=== PATIENT | male | born 1930 | race Caucasian/White ===

== ENCOUNTER 2018-03-08 17:53 | Inpatient (IN) ==
--- NOTE | 2018-03-08 18:22 | Emergency Department Note ---
Disposition Clinical Impression: Shortness of breath, Lactic acidosis, Elevated troponin, New onset atrial flutter Congestive heart failure Qualifiers: Heart failure type: unspecified Heart failure chronicity: acute Qualified Code( s): I50.9 - Heart failure, unspecified Disposition: Admitted As Inpatient Condition: Fair Referrals: Boston Pearson MD [Primary Care Provider] - Forms: ED Satisfaction Letter Time of Disposition: 20:14 General Adult HPI - General Chief complaint: ED Shortness of Breath/Dyspnea Stated complaint: SOB / Bilateral LE Edema Time Seen by Provider: 03/08/18 17:59 Nursing Notes Reviewed: Yes Vital Signs Reviewed: Yes - History of Present Illness HPI Narrative: Mr. Lux is a very pleasant 87-year-old gentleman with a past history of hypertension, hyperlipidemia, type 2 diabetes, chronic kidney disease stage III and history of aortic valve replacement in 1998 presents to the [facility] emergency department with a chief complaint of shortness of breath. Patient was just seen last week with nephrology and had his Lasix increased to take 40 mg in the morning along with 20 at night. He reports that he becomes very short of breath during exertion and is able to ambulate using a walker. The SOB improves with rest. In addition, he is complaining of worsening lower extremities edema over the last week. Patient does have some chronic left edema with venous stasis dermatitis present due to history of varicose vein removal. No history of DVT, PE, recent travel. He only takes ASA for anticoagulation. Patient denies any PND but does have orthopnea. No recent hospitalizations. No history of CHF. He does report a history of recurrent falls recently. No tobacco or EtOH abuse. No other complaint at this time. Pain Scale: 5 - Related Data Allergies Allergy/AdvReac Type Severity Reaction Status Date / Time No Known Allergies Allergy Verified 12/27/17 18:15 Review of Systems: Constitutional: No fever Vision: No blurred vision ENT: No rhinorrhea Respiratory: No cough Cardiovascular: No chest pain Allergic: No allergies : No blood in urine GI: No blood in stool Hematologic: No bruising Dermatologic: No skin rash Musculoskeletal: No pain in the extremities Neuro: No numbness of the extremities Past Medical History - Past Medical History Medical history: Reports: non-contributory Psychiatric history: Reports: no psych history - Social History Smoking Status: Never smoker Smokeless Tobacco Status: No Alcohol use: Reports: none Physical Exam CONSTITUTIONAL: Alert and oriented X3 in no apparent distress HEAD: Normocephalic; atraumatic. Oropharynx: pink/moist RESP: NRD without use of accessory musculature, CTA b/l with no wheezes/rales/ rhonchi CARD: Regular rhythm, MIHIR ABD: grossly normal, soft, non-tender, no guarding/distention/rigidity SKIN: warm, dry EXT: PT pulses 1+ and symmetrical; Lateralizing edema R>L; stasis dermatitis present b/l, 1+ pitting edema bilateral PSYCH: appropriate mood/affect Course Course Narrative: Patient was seen and examined at bedside. Vital signs reviewed were unremarkable. Physical examination demonstrates lungs that were clear to auscultation bilaterally. No evidence of any rales, crackles or wheezing. Patient is in the presence of a systolic ejection murmur. Abdominal exam was benign. Lower extremity exam demonstrates stasis dermatitis bilaterally with 1 + pitting edema bilaterally. Posterior tibial pulses are 1+. There is some lateralizing edema with right greater than left. He denies any tenderness to his lower extremities. We will begin workup with total lead EKG, chest x-ray, troponin, CBC, BMP, coags. Patient does appear comfortable and nontoxic at this time. In the setting of shortness of breath and lateralizing edema we will order a DVT study to his right lower extremity to rule out possible DVT. Patient has no history of DVT or pulmonary embolization in the past. Echocardiogram was reviewed from 09/26/2017 showed EF of 66% with mild diastolic dysfunction. Disposition pending. 2000: DVT study shows no thrombus present. CBC unremarkable. BMP shows elevated creatinine of 1.5 at his baseline. Coags were unremarkable. Chest x- ray shows no acute process. Twelve-lead EKG demonstrates what appears to be new onset atrial flutter. Repeat EKG again demonstrates similar findings. Lactic acid at 4.2. This could be explained due to him taking metformin 500 mg 5 times a day in the setting of chronic kidney disease. I would recommend patient be admitted for observation due to his elevated troponin, lactic acid and new onset atrial flutter. This case was discussed with hospitalist, Dr. Rice, who will accept patient for admission. No further recommendations per hospital team. This disposition and plan was discussed the patient understands and agrees. All further questions or concerns were addressed. Vital Signs Temperature 97.8 F 03/08/18 17:55 Pulse Rate 70 03/08/18 17:55 Respiratory Rate 18 03/08/18 17:55 Blood Pressure 144/70 03/08/18 17:55 O2 Sat by Pulse Oximetry 95 03/08/18 17:55 Temperature 97.8 F 03/08/18 18:18 Pulse Rate 70 03/08/18 18:18 Respiratory Rate 18 03/08/18 18:18 Blood Pressure 144/70 03/08/18 18:18 O2 Sat by Pulse Oximetry 95 03/08/18 18:18 Oxygen Delivery Oxygen Delivery Room Air Medical Decision Making - Medical Records Medical records reviewed: Yes I reviewed the patient's medical records. - Lab Data Lab results reviewed: Yes I reviewed the patient's lab results. Result diagrams: 03/08/18 18:41 03/08/18 18:41 Lab Results 03/08/18 03/08/18 03/08/18 Range/Units 18:41 18:41 18:41 WBC 5.4 (4.3-11.1) K/mcL RBC 4.23 (4.19-5.50) M/mcL Hgb 12.7 L (12.9-16.9) g/dL Hct 39.4 (37.5-50.1) % MCV 93.1 (83.0-100.0) fL MCH 30.0 (28.0-33.3) pg MCHC 32.2 (31.6-35.5) g/dL RDW 20.0 H (11.5-14.5) % Plt Count 169 (140-400) K/mcL MPV 9.4 (9.4-12.4) fL Immature Gran % 0.4 (0-4) % Seg Neutrophils % 68.2 % Lymphocytes % 18.9 % Monocytes % 8.3 % Eosinophils % 3.5 % Basophils % 0.7 % Neutrophils # 3.7 (1.6-8.9) K/mcL Lymphocytes # 1.0 (0.6-4.6) K/mcL Monocytes # 0.5 (0.0-1.3) K/mcL Eosinophils # 0.2 (0.0-0.6) K/mcL Basophils # 0.0 (0.0-0.2) K/mcL PT 11.8 (9.4-12.1) Seconds INR 1.1 APTT 28.9 (26.0-36.0) Seconds Sodium 135 L (136-145) mEq/L Potassium 4.4 (3.5-5.1) mEq/L Chloride 94 L (98-107) mEq/L Carbon Dioxide 31 H (23-29) mEq/L BUN 26 H (8-23) mg/dL Creatinine 1.53 H (0.70-1.30) mg/dL Est GFR ( Amer) 53 L (> 60) Est GFR (Non-Af Amer) 43 L (> 60) BUN/Creatinine Ratio 17 (6-26) Glucose 275 H (70-105) mg/dL Calculated Osmolality 295 (280-300) Lactic Acid (0.5-2.2) mmol/L Calcium 8.5 L (8.6-10.3) mg/dL Troponin I 0.11 H* (< 0.04) ng/mL B-Natriuretic Peptide (Less than 100) pg/mL 03/08/18 03/08/18 Range/Units 18:41 18:41 WBC (4.3-11.1) K/mcL RBC (4.19-5.50) M/mcL Hgb (12.9-16.9) g/dL Hct (37.5-50.1) % MCV (83.0-100.0) fL MCH (28.0-33.3) pg MCHC (31.6-35.5) g/dL RDW (11.5-14.5) % Plt Count (140-400) K/mcL MPV (9.4-12.4) fL Immature Gran % (0-4) % Seg Neutrophils % % Lymphocytes % % Monocytes % % Eosinophils % % Basophils % % Neutrophils # (1.6-8.9) K/mcL Lymphocytes # (0.6-4.6) K/mcL Monocytes # (0.0-1.3) K/mcL Eosinophils # (0.0-0.6) K/mcL Basophils # (0.0-0.2) K/mcL PT (9.4-12.1) Seconds INR APTT (26.0-36.0) Seconds Sodium (136-145) mEq/L Potassium (3.5-5.1) mEq/L Chloride (98-107) mEq/L Carbon Dioxide (23-29) mEq/L BUN (8-23) mg/dL Creatinine (0.70-1.30) mg/dL Est GFR ( Amer) (> 60) Est GFR (Non-Af Amer) (> 60) BUN/Creatinine Ratio (6-26) Glucose (70-105) mg/dL Calculated Osmolality (280-300) Lactic Acid 4.2 H* (0.5-2.2) mmol/L Calcium (8.6-10.3) mg/dL Troponin I (< 0.04) ng/mL B-Natriuretic Peptide 617 H (Less than 100) pg/mL - Radiology Data Radiology results reviewed: Yes I reviewed the patient's radiology results. Chest X-Ray 03/08/18 18:14 IMPRESSION: Low lung volume study with bibasilar opacities that likely reflect atelectasis. Trace effusions are difficult to exclude. Probable hiatal hernia. Stable cardiomegaly. D/ / 03/08/2018 18:35:24 Nolan Leonard MD / griselda Interpreting Provider: Nolan Leonard MD - EKG Data EKG #1 EKG attestation: Yes I reviewed and interpreted this EKG. EKG results narrative: 1833 - heart rate 69, QRS 98, QTC 437 consistent with new onset atrial flutter. Left axis. There are no other specific ST or T-wave abnormalities. This EKG was compared to previous 03 performed on 12/13/2012. EKG #2 EKG attestation: Yes I reviewed and interpreted this EKG. EKG results narrative: 1950 - heart rate 68, QRS 101, QTC 434 consistent with atrial flutter. This EKG is unchanged from previous that was performed at 1833. Attestation Statement - Attestation Attestation: I, Td Roberts DO, examined this patient [id number] and my medical decision-making was reviewed with Moreno Razo PGY-1, Resident Physician. I agree with the documented findings, disposition and treatment plan as described except to the extent set forth below. Please see my progress notes for details.
--- NOTE | 2018-03-08 18:45 | Emergency Department Note ---
Disposition Clinical Impression: Congestive heart failure, Shortness of breath, Lactic acidosis, Elevated troponin Disposition: Admitted As Inpatient Condition: Fair Referrals: Boston Pearson MD [Primary Care Provider] - Forms: ED Satisfaction Letter Time of Disposition: 20:04 General Adult HPI - General Chief complaint: ED Shortness of Breath/Dyspnea Stated complaint: SOB / Bilateral LE Edema Time Seen by Provider: 03/08/18 17:59 - History of Present Illness Pain Scale: 5 - Related Data Allergies Allergy/AdvReac Type Severity Reaction Status Date / Time No Known Allergies Allergy Verified 12/27/17 18:15 Past Medical History - Past Medical History Medical history: Reports: non-contributory Psychiatric history: Reports: no psych history - Social History Smoking Status: Never smoker Smokeless Tobacco Status: No Alcohol use: Reports: none Course Vital Signs Temperature 97.8 F 03/08/18 17:55 Pulse Rate 70 03/08/18 17:55 Respiratory Rate 18 03/08/18 17:55 Blood Pressure 144/70 03/08/18 17:55 O2 Sat by Pulse Oximetry 95 03/08/18 17:55 Temperature 97.8 F 03/08/18 18:18 Pulse Rate 70 03/08/18 18:18 Respiratory Rate 18 03/08/18 18:18 Blood Pressure 144/70 03/08/18 18:18 O2 Sat by Pulse Oximetry 95 03/08/18 18:18 Oxygen Delivery Oxygen Delivery Room Air Medical Decision Making - Lab Data Result diagrams: 03/08/18 18:41 03/08/18 18:41 Lab Results 03/08/18 03/08/18 03/08/18 Range/Units 18:41 18:41 18:41 WBC 5.4 (4.3-11.1) K/mcL RBC 4.23 (4.19-5.50) M/mcL Hgb 12.7 L (12.9-16.9) g/dL Hct 39.4 (37.5-50.1) % MCV 93.1 (83.0-100.0) fL MCH 30.0 (28.0-33.3) pg MCHC 32.2 (31.6-35.5) g/dL RDW 20.0 H (11.5-14.5) % Plt Count 169 (140-400) K/mcL MPV 9.4 (9.4-12.4) fL Immature Gran % 0.4 (0-4) % Seg Neutrophils % 68.2 % Lymphocytes % 18.9 % Monocytes % 8.3 % Eosinophils % 3.5 % Basophils % 0.7 % Neutrophils # 3.7 (1.6-8.9) K/mcL Lymphocytes # 1.0 (0.6-4.6) K/mcL Monocytes # 0.5 (0.0-1.3) K/mcL Eosinophils # 0.2 (0.0-0.6) K/mcL Basophils # 0.0 (0.0-0.2) K/mcL PT 11.8 (9.4-12.1) Seconds INR 1.1 APTT 28.9 (26.0-36.0) Seconds Sodium 135 L (136-145) mEq/L Potassium 4.4 (3.5-5.1) mEq/L Chloride 94 L (98-107) mEq/L Carbon Dioxide 31 H (23-29) mEq/L BUN 26 H (8-23) mg/dL Creatinine 1.53 H (0.70-1.30) mg/dL Est GFR ( Amer) 53 L (> 60) Est GFR (Non-Af Amer) 43 L (> 60) BUN/Creatinine Ratio 17 (6-26) Glucose 275 H (70-105) mg/dL Calculated Osmolality 295 (280-300) Lactic Acid (0.5-2.2) mmol/L Calcium 8.5 L (8.6-10.3) mg/dL Troponin I 0.11 H* (< 0.04) ng/mL B-Natriuretic Peptide (Less than 100) pg/mL 03/08/18 03/08/18 Range/Units 18:41 18:41 WBC (4.3-11.1) K/mcL RBC (4.19-5.50) M/mcL Hgb (12.9-16.9) g/dL Hct (37.5-50.1) % MCV (83.0-100.0) fL MCH (28.0-33.3) pg MCHC (31.6-35.5) g/dL RDW (11.5-14.5) % Plt Count (140-400) K/mcL MPV (9.4-12.4) fL Immature Gran % (0-4) % Seg Neutrophils % % Lymphocytes % % Monocytes % % Eosinophils % % Basophils % % Neutrophils # (1.6-8.9) K/mcL Lymphocytes # (0.6-4.6) K/mcL Monocytes # (0.0-1.3) K/mcL Eosinophils # (0.0-0.6) K/mcL Basophils # (0.0-0.2) K/mcL PT (9.4-12.1) Seconds INR APTT (26.0-36.0) Seconds Sodium (136-145) mEq/L Potassium (3.5-5.1) mEq/L Chloride (98-107) mEq/L Carbon Dioxide (23-29) mEq/L BUN (8-23) mg/dL Creatinine (0.70-1.30) mg/dL Est GFR ( Amer) (> 60) Est GFR (Non-Af Amer) (> 60) BUN/Creatinine Ratio (6-26) Glucose (70-105) mg/dL Calculated Osmolality (280-300) Lactic Acid 4.2 H* (0.5-2.2) mmol/L Calcium (8.6-10.3) mg/dL Troponin I (< 0.04) ng/mL B-Natriuretic Peptide 617 H (Less than 100) pg/mL Attestation Statement - Attestation Attestation: I, Td Roberts DO, examined this patient [id number] and my medical decision-making was reviewed with Moreno Razo PGY-1, Resident Physician. I agree with the documented findings, disposition and treatment plan as described except to the extent set forth below. Please see my progress notes for details. 87-year-old male presents to the emergency room for evaluation of shortness of breath and bilateral lower extremity swelling. Patient also has had some increased work of breathing and orthopnea. Patient denies chest pain fevers chills nausea vomiting or diarrhea. Denies any headache or vision change. Patient does have increased work of breathing and bilateral lower extremity swelling goes up above the knee bilaterally. His appropriate palpable DP and PT pulses. His lungs are clear to auscultation heart is regular abdomen is soft. Patient is resting comfortably in the bed at this time. He is concerned about fluid overload causing him exertional issues at home to the point where he feels unsteady. Patient denies any other symptoms at this time. Physical exam is unremarkable. She will have detailed workup including CBC chemistry EKG troponin and BNP and chest x-ray completed at this time. Medications intervention will be discussed once the workup and treatment course are established. See detailed documentation of the physical exam, medical intervention, medical decision-making and disposition in the resident physician' s note. 1900 Patient found to have an elevated lactic acid of 4.1. There is no infectious source the patient is been hemodynamically stable. He is on a significantly elevated dosage of metformin. Could be discharged to the asymptomatic lactic acidosis at this time. Patient's troponin is elevated this could be demand ischemia secondary to his increased work of breathing orthopnea. Patient's EKG is unremarkable and we repeated at this time and does shows stable atrial flutter. This is not a previous diagnosis of some review of his chart. Is difficult to differentiate the source to the symptoms of this time but with the new findings of possible atrial flutter elevated troponin and a synovial elevated lactic acid patient will be admitted for further management and evaluation. Patient was informed of this family was informed of the comfortable this plan. Patient is otherwise in no distress. Patient was discussed with the hospitalist. No other recommendations from them this time. Patient is otherwise currently stable at the time of admission to the hospital for further management.
[2018-03-08 18:59] LABS: Basophils % 0.7 %; Eosinophils # 0.2 K/mcL (0.0-0.6); Eosinophils % 3.5 %; Hematocrit 39.4 % (37.5-50.1); Hemoglobin 12.7 g/dL (12.9-16.9); Immature Granulocytes % 0.4 % (0-4); Lymphocytes % 18.9 %; Mean Corpuscular HGB Conc 32.2 g/dL (31.6-35.5); Mean Corpuscular Volume 93.1 fL (83.0-100.0); Mean Platelet Volume 9.4 fL (9.4-12.4); Monocytes # 0.5 K/mcL (0.0-1.3); Monocytes % 8.3 %; Neutrophils # 3.7 K/mcL (1.6-8.9); Platelet Count 169 K/mcL (140-400); Red Blood Count 4.23 M/mcL (4.19-5.50); Segmented Neutrophils % 68.2 %
[2018-03-08 19:05] LABS: INR 1.1; Prothrombin Time 11.8 Seconds (9.4-12.1)
[2018-03-08 19:08] LABS: Activated Partial Thrombo Time 28.9 Seconds (26.0-36.0)
[2018-03-08 19:17] LABS: Calcium 8.5 mg/dL (8.6-10.3); Potassium 4.4 mEq/L (3.5-5.1)
[2018-03-08 19:24] LABS: Troponin I 0.11 ng/mL (< 0.04)
[2018-03-08] MEDS ORDERED: Aspirin 325 MG TABLET PO ONE (19:25)
[2018-03-08 20:33] LABS: Bilirubin,Urine Negative (Negative); Blood,Urine Negative (Negative); Clarity,Urine Clear (Clear); Color,Urine Yellow (Yellow); Glucose,Urine (UA) 250 mg/dL (Normal); Ketones,Urine Negative (Negative); Leukocyte Esterase,Urine Negative (Negative); Nitrite,Urine Negative (Negative); Protein,Urine Negative (Neg-Trace); Specific Gravity,Urine 1.015 (1.010-1.025); Urobilinogen,Urine Normal (Normal)
[2018-03-08] MEDS ORDERED: Naloxone 0.4 MG/ML INJ IVP PRN (22:16)
[2018-03-08] MEDS ORDERED: Acetaminophen 325 MG TABLET PO PRN (22:16)
[2018-03-08] MEDS ORDERED: D5% in Water 1,000 ML IVC PRN (22:21)
[2018-03-08] MEDS ORDERED: Dextrose Gel 15 GM/37.5 ML TUBE PO PRN ×2 (22:21)
[2018-03-08] MEDS ORDERED: *HR* Dextrose 50 % in Water (Syg) 50 ML SYRINGE IVP PRN (22:21)
--- NOTE | 2018-03-08 22:25 | Internal Med History&Physical ---
Date of Encounter: 03/08/18 Time of Encounter: 21:40 Internal Medicine - H&P: HPI Chief complaint: Shortness of breath Admitted From: Emergency Dept Plans for Post Hospital Care: Home History of present illness: Mr. 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 patient lives alone and is ADL-independent. He does have some exertional dyspnea at baseline, going on for the last few months, which has been worse in the last 2-3 days, associated with worsening leg welling. He does have chronic swelling and skin changes at baseline. He also reports intermittent dry cough. No chest pain, palpitations, nausea, vomiting, fever/chills. Past Med Surg Social Fam HX - Past Medical History Source: patient Medical history: diabetes, hyperlipidemia, hypertension, renal disease, thyroid disease Psychiatric history: no psych history - Past Surgical History Surgical History: breast surgery, hip replacement (left), knee replacement ( right), other (AV replacement, varicose vein stripping, hemorrhoidectomy) - Social History Smoking Status: Never smoker Smokeless Tobacco Status: No Alcohol use: none Drug use: none Occupational status: retired Current living situation: Home - Independent Activity Level: Independent ambulation Recent Out of Country Travel Within the Last 8 Weeks: No Exposure or Possible Exposure to Illness During Travel: No - Family History Mother Living Status: Cause of : CVA Hx Family Cardiac Disorders: Yes (CVA, CHF, venous stasis) Hx Family Neurologic Disorders: Yes (Alzheimers) Father Living Status: Age at : 94 Cause of : [place] Hx Family Cardiac Disorders: Yes ([place]) Hx Family Endocrine Disorder: Yes (DM) Internal Medicine - H&P: Meds Alendronate Sodium [Fosamax] 70 mg PO QWEEK 03/08/18 [History] Aspirin [Lo-Dose Aspirin EC] 81 mg PO DAILY 03/08/18 [History] Atorvastatin Calcium [Lipitor] 20 mg PO DAILY 03/08/18 [History] Carbidopa/Levodopa 25/100 [Sinemet 25/100] 1 tab PO 5XD 03/08/18 [History] Cyanocobalamin (Vitamin B-12) [Vitamin B12] 1,000 mcg PO DAILY 03/08/18 [History ] Ergocalciferol (VITAMIN D2) [Vitamin D2] 50,000 unit PO QWEEK 03/08/18 [History] Furosemide [Lasix] 40 mg PO 1500 03/08/18 [History] Furosemide [Lasix] 80 mg PO QAM 03/08/18 [History] Insulin Aspart Prot/Insuln Asp [Novolog Mix 70-30 Vial] 10 - 12 unit SQ BID 01/21 [History] Iron Polysaccharide Complex [Ferrex 150] 150 mg PO DAILY 03/08/18 [History] Lactobacillus Acidophilus [Acidophilus] 1 each PO DAILY 03/08/18 [History] Levothyroxine Sodium [Levoxyl] 88 mcg PO QAM 03/08/18 [History] Metformin HCl [Glucophage] 1,000 mg PO QAM 03/08/18 [History] Metformin HCl [Glucophage] 1,500 mg PO QPM 03/08/18 [History] Metoprolol [Lopressor] 100 mg PO BID 03/08/18 [History] Primidone [Mysoline] 250 mg PO BID 03/08/18 [History] Vitamin E (Dl,Tocopheryl Acet) [Vitamin E] 1,000 unit PO BID 03/08/18 [History] amLODIPine [Norvasc] 5 mg PO DAILY 03/08/18 [History] hydroCHLOROthiazide [Hydrochlorothiazide] 25 mg PO DAILY 03/08/18 [History] 3 Allergy/AdvReac Type Severity Reaction Status Date / Time No Known Allergies Allergy Verified 12/27/17 18:15 All Systems PM: A 10-system review of systems was performed and is negative for pertinent findings except as documented above in the HPI. - Constitutional Constitutional: no chills, no fever(s), no night sweats - EENT Eyes: no change in vision, no discharge, no pain, no photophobia Ears: no ear discharge, no ear pain, no tinnitus Nose, mouth and throat: no dysphagia, no nasal discharge, no neck pain, no sore throat - Cardiovascular Cardiovascular ROS IM: dyspnea on exertion, edema - Respiratory Respiratory: cough, dyspnea on exertion, no dyspnea, no wheezing, no excessive phlegm production - Gastrointestinal Gastrointestinal: no abdominal pain, no diarrhea, no hematemesis, no hematochezia, no melena, no nausea, no vomiting - Musculoskeletal Musculoskeletal ROS IM: no numbness, no tingling - Integumentary Integumentary IM: no rash, no unusual bruising - Neurological Neurological ROS: no confusion, no convulsions, no focal weakness, no numbness, no tingling, no tremor(s) - Hematologic/Lymphatic Hematologic/Lymphatic: no easy bruising - Constitutional Vitals: Temp Pulse Resp BP Pulse Ox 97.8 F 70 18 125/76 95 03/08/18 18:18 03/08/18 18:18 03/08/18 21:47 03/08/18 21:47 03/08/18 18:18 General appearance: Present: A&O X 3, answers questions appropriately - Respiratory Respiratory exam: Present: CTAB, rales (bibasal). Absent: accessory muscle use , rhonchi, wheezes - Cardiovascular Cardiovascular exam: Present: RRR, +S1, +S2 (prosthetic), systolic murmur ( systolic). Absent: diastolic murmur, gallop, rubs - GI/Abdominal GI/Abdominal exam: Present: normal bowel sounds, soft, no peritoneal signs. Absent: distended, tenderness - Extremities Exam Extremities exam: Present: full ROM, pedal edema (2+ pedal edema, chronic stasis dermatitis), warm, radial pulses palpable and symmetrical. Absent: calf tenderness, cyanotic - Neurological Exam Neurological exam: Present: CN II-XII intact, oriented X3, no focal deficits. Absent: pronater drift, facial droop, speech deficit - Skin Skin exam: Present: dry, intact Internal Med - H&P Results - Labs CBC & Chem 7: 03/08/18 18:41 03/08/18 18:41 - EKG Data -: EKG Interpreted by Myself EKG shows normal: sinus rhythm (atrial flutter in 2 leads only?) Rate: normal - Assessment and plan (1) Congestive heart failure Current Visit: Yes Status: Acute Assessment and plan: Echo from 09/2017 showed preserved EF, mild LV diastolic dysfunction, moderate prosthetic , MR, PHTN; continue IV diuresis, fluid restriction, urine output monitoring; continue beta eve; Telemetry monitoring and serial Troponins; check TTE; Qualifiers: Heart failure type: diastolic Heart failure chronicity: acute on chronic Qualified Code(s): I50.33 - Acute on chronic diastolic (congestive) heart failure (2) New onset atrial flutter Current Visit: Yes Status: Suspected Assessment and plan: EKG is not clear; atrial flutter noted only in 2 leads? rate controlled; continue Telemetry and repeat EKG in am; (3) Lactic acidosis Current Visit: Yes Status: Acute Assessment and plan: improving; in the setting of high dose of Metformin use and CKD; continue to monitor; (4) Elevated troponin Current Visit: Yes Status: Acute Assessment and plan: likely due to acute CHF; continue Telemetry and trend Troponins; (5) Essential hypertension Current Visit: Yes Status: Chronic (6) Diabetes mellitus Current Visit: Yes Status: Chronic Assessment and plan: blood sugars on BMP elevated; start Accucheck blood glucose monitoring with basal bolus insulin regimen; diabetic diet; Qualifiers: Diabetes mellitus type: type 2 Diabetes mellitus fpc insulin use: with fpc use Diabetes mellitus complication status: with kidney complications Diabetes mellitus complication detail: with chronic kidney disease Chronic kidney disease stage: stage 3 (moderate) Qualified Code(s): E11.22 - Type 2 diabetes mellitus with diabetic chronic kidney disease; N18.3 - Chronic kidney disease, stage 3 (moderate); N18.3 - Chronic kidney disease, stage 3 (moderate); Z79.4 - halfway (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 of insulin; 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; Z79.4 - halfway (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 of insulin; 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
[2018-03-08] MEDS: *HR* Heparin 5,000 UNIT/ML VIAL SQ SCH (22:55)
[2018-03-08] MEDS: Carbidopa/Levodopa 25/100 TABLET PO SCH (22:55)
[2018-03-08] MEDS: 0.9 % Sodium Chloride 1,000 ML IVC SCH ×2 (23:14→23:15)
[2018-03-09] MEDS: *HR* Heparin 5,000 UNIT/ML VIAL SQ SCH ×3 (05:55→20:38)
[2018-03-09 06:04] LABS: Basophils % 0.5 %; Eosinophils # 0.1 K/mcL (0.0-0.6); Eosinophils % 2.8 %; Hematocrit 41.6 % (37.5-50.1); Hemoglobin 13.2 g/dL (12.9-16.9); Immature Granulocytes % 0.5 % (0-4); Lymphocytes # 0.8 K/mcL (0.6-4.6); Lymphocytes % 17.6 %; Mean Corpuscular HGB Conc 31.7 g/dL (31.6-35.5); Mean Corpuscular Hemoglobin 29.6 pg (28.0-33.3); Mean Corpuscular Volume 93.3 fL (83.0-100.0); Mean Platelet Volume 9.2 fL (9.4-12.4); Monocytes # 0.4 K/mcL (0.0-1.3); Monocytes % 8.5 %; Platelet Count 144 K/mcL (140-400); Red Blood Count 4.46 M/mcL (4.19-5.50); Segmented Neutrophils % 70.1 %
[2018-03-09 06:27] LABS: Calcium 8.7 mg/dL (8.6-10.3); Potassium 4.2 mEq/L (3.5-5.1)
[2018-03-09] MEDS: Insulin LISPRO 300 UNITS/3 ML VIAL SQ SCH ×4 (07:50→21:31)
[2018-03-09] MEDS: Metoprolol 100 MG TABLET PO SCH ×2 (07:52→20:38)
[2018-03-09] MEDS: Aspirin Enteric Coated 81 MG Tablet PO SCH (07:52)
[2018-03-09] MEDS: Lactobacillus 1 EACH CAP.SPRINK PO SCH (07:52)
[2018-03-09] MEDS: Furosemide 40 MG/4 ML VIAL IVP SCH ×2 (07:52→17:19)
[2018-03-09] MEDS: Carbidopa/Levodopa 25/100 TABLET PO SCH ×5 (07:55→22:57)
--- NOTE | 2018-03-09 10:00 | Electrocardiograph Report ---
[place] [id number] Test Date: 2018-03-08 Pat Name: Aj Lux Department: 104 Room: 3B Gender: M Director Imaging: ASIA : 1930 Requested By: Lance Razo Order Number: [id number] Reading MD: Neno Ray Measurements Intervals [place] Rate: 69 P: [place]: 0 QRS: -22 QRSD: 98 T: 240 QT: 418 QTc: 437 Interpretive Statements PROBABLY SINUS RHYTHM BASELINE ARTIFACT COMPLICATES ACCURATE INTERPRETATION Electronically Signed On 03-09-2018 9:58:47 EDT by Neno Ray
--- NOTE | 2018-03-09 17:57 | Internal Med Progress Note ---
Date of Encounter: 03/09/18 Time of Encounter: 17:55 - Assessment and plan (1) Congestive heart failure Current Visit: Yes Status: Acute Assessment and plan: Presents today with shortness of breath and bilateral lower extremity swelling. Continues to require O2 for respiratory support. Patient reports she takes a "water pill" at home that his dose was recently increased. He reports that his doses had to be increased due to increased swelling and weight gain over the last couple of weeks. Additionally, the patient reports that while at physical therapy a week or 2 ago he became very hypoxic and his heart rate dropped very low and that his physical therapy team said they would no longer let him complete therapy until he was cleared by his PCP or software design analyst. TTE today completed and revealed an LVEF of 50-55%, bioprosthetic aortic valve replacement with normal function, no pulmonary hypertension, mild left ventricular diastolic dysfunction, severely dilated left atrium. Patient denies any improvement since admission but also denies any worsening of symptoms. He was noted to have an elevated troponin which peaked at 0.12. This is likely due to demand ischemia. Troponins were continued to be trended and are now coming down most recent troponin I 0.09. Continue IV diuresis Continue fluid restriction Monitor I's and O's Continuous telemetry Consult to cardiology, new bradycardia and hypoxia Qualifiers: Heart failure type: diastolic Heart failure chronicity: acute on chronic Qualified Code(s): I50.33 - Acute on chronic diastolic (congestive) heart failure (2) Lactic acidosis Current Visit: Yes Status: Resolved Assessment and plan: Result Likely caused by metformin use (3) Elevated troponin Current Visit: Yes Status: Acute Assessment and plan: likely due to acute CHF, see assessment and plan above (4) New onset atrial flutter Current Visit: Yes Status: Suspected Assessment and plan: EKG does not appear to be atrial flutter per my review (5) Essential hypertension Current Visit: Yes Status: Chronic Assessment and plan: Stable, continue antihypertensives (6) Diabetes mellitus Current Visit: Yes Status: Chronic Assessment and plan: Throughout the day blood glucose has continued to be elevated at times Increasing patient's dose to medium sliding scale coverage Qualifiers: Diabetes mellitus type: type 2 Diabetes mellitus fpc insulin use: with fpc use Diabetes mellitus complication status: with kidney complications Diabetes mellitus complication detail: with chronic kidney disease Chronic kidney disease stage: stage 3 (moderate) Qualified Code(s): E11.22 - Type 2 diabetes mellitus with diabetic chronic kidney disease; N18.3 - Chronic kidney disease, stage 3 (moderate); N18.3 - Chronic kidney disease, stage 3 (moderate); Z79.4 - long term acute care registered nurse (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 of insulin; Z79.4 - penitentiary (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 of insulin; Z79.4 - long term acute care registered nurse (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 of insulin; Z79.4 - long term acute care registered nurse (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 of insulin (7) CKD (chronic kidney disease), stage III Current Visit: Yes Status: Chronic Assessment and plan: Serum creatinine at baseline, continue to avoid nephrotoxins Continue to monitor serum creatinine closely (8) Aortic valve replaced Current Visit: Yes Status: Chronic (9) Hypothyroidism Current Visit: Yes Status: Chronic Assessment and plan: Continue Synthroid Qualifiers: Hypothyroidism type: unspecified Qualified Code(s): E03.9 - Hypothyroidism , unspecified - Time Spent With Patient Total time spent is greater than 50% in coordination of care (as documented) at patient's floor/unit and/or counseling patient: Greater than 35 minutes - Subjective Interval history: Mr. Lux an 87-year-old male patient with a history of aortic stenosis and bioprosthetic valve, CKD, and diabetes. He presents due to worsening shortness of breath. Patient reports some baseline dyspnea however reports this is worsening over the last couple of months. In getting increasingly worse over the last 2-3 days. He is also noted to have some bilateral lower extremity swelling. Denied any chest pain, diaphoresis, nausea. Patient seen and examined at bedside today continues to deny chest pain however is reporting shortness of breath at rest which also worsens with exertion. - Constitutional Vitals: Temp Pulse Resp BP Pulse Ox 97.6 F 68 15 105/63 97 03/09/18 14:58 03/09/18 14:58 03/09/18 14:58 03/09/18 14:58 03/09/18 14:58 General appearance: Present: A&O X 3, answers questions appropriately - Head Head exam: Present: atraumatic, normocephalic - Eye Eye exam: Present: PERRL, conjuntiva pink, sclera anicteric Pupils: Present: PERRL - Neck Neck exam general surgery: Present: supple, trachea midline. Absent: lymphadenopathy - Respiratory Respiratory exam: Present: CTAB, rales (Bibasilar). Absent: accessory muscle use, rhonchi, wheezes - Cardiovascular Cardiovascular exam: Present: RRR, +S1, +S2, systolic murmur (Holosystolic). Absent: diastolic murmur, gallop, rubs - GI/Abdominal GI/Abdominal exam: Present: normal bowel sounds, soft, no peritoneal signs. Absent: distended, tenderness - Extremities Exam Extremities exam: Present: normal capillary refill, pedal edema, warm, radial pulses palpable and symmetrical. Absent: calf tenderness, cyanotic, joint swelling, normal inspection - Neurological Exam Neurological exam: Present: CN II-XII intact, oriented X3, no focal deficits. Absent: pronater drift, facial droop, speech deficit - Skin Skin exam: Present: dry, intact Internal Medicine: Result - Labs CBC & Chem 7: 03/09/18 05:48 03/09/18 05:48 Labs: Short CBC 03/09/18 Range/Units 05:48 WBC 4.3 (4.3-11.1) K/mcL Hgb 13.2 (12.9-16.9) g/dL Hct 41.6 (37.5-50.1) % Plt Count 144 (140-400) K/mcL Neutrophils # 3.0 (1.6-8.9) K/mcL BMP 03/09/18 05:48 Sodium 139 Potassium 4.2 Chloride 97 L Carbon Dioxide 33 H BUN 23 Creatinine 1.42 H Glucose 90 Calcium 8.7 Cardiac Enzymes 03/08/18 03/09/18 03/09/18 Range/Units 22:33 05:48 11:26 Troponin I 0.12 H* 0.13 H* 0.09 H* (< 0.04) ng/mL - ABG Interpretation ABG results: PT/INR, D-dimer PT 11.8 Seconds (9.4-12.1) 03/08/18 18:41 - Impressions Impressions Echocardiogram 03/09/18 10:00 Impressions: LVEF 50-55%. Bioprosthetic aortic valve replacement with normal function. No pulmonary hypertension. Mild left ventricular diastolic dysfunction. Severely dilated left atrium. Left Ventricular Wall Motion: Rest Echo Findings All wall segments showed normal motion. Findings: Study Quality * Technically adequate exam. Right Ventricle * Normal right ventricular structure and function. Interatrial Septum * No evidence of PFO by color Doppler. Aorta * Normally sized aortic root. Pericardium * The pericardium appears normal. Aortic Valve * No aortic regurgitation. * No aortic stenosis. * Aortic valve not well visualized. * Mean gradient 20mmHg likely normal for bioprosthetic aortic valve * Bioprosthetic aortic valve replacement with normal function. Mitral Valve * Normal mitral valve structure. * No mitral stenosis. * Mild mitral regurgitation. Tricuspid Valve * No tricuspid stenosis. * Mild tricuspid regurgitation. * Estimated RVSP is 30 mmHg. * No pulmonary hypertension. Pulmonic Valve * No pulmonic stenosis. * Mild pulmonic regurgitation. Left Ventricle * LVEF 50-55%. * Mild left ventricular diastolic dysfunction. IVC * Normal IVC dimensions and inspiratory collapse. Left Atrium * Severely dilated left atrium. Right Atrium * Moderately dilated right atrium. Consult Discharge Plan - Plan Referrals: Boston Pearson MD [Primary Care Provider] -
[2018-03-09] MEDS ORDERED: Insulin LISPRO 300 UNITS/3 ML VIAL SQ SCH (21:00)
[2018-03-10] MEDS: *HR* Heparin 5,000 UNIT/ML VIAL SQ SCH ×3 (05:22→20:39)
--- NOTE | 2018-03-10 06:24 | Electrocardiograph Report ---
[address] [address] Test Date: 2018-03-08 Pat Name: Aj Lux Department: [id number] Room: 3B Gender: M Cafeteria Clerk: JOHN : 1930 Requested By: Lance Razo Order Number: [id number] Reading MD: Neno Ray Measurements Intervals [place] Rate: 68 P: ID: 0 QRS: -24 QRSD: 101 T: 5 QT: 417 QTc: 434 Interpretive Statements ATRIAL FLUTTER/TACHYCARDIA BORDERLINE LEFT AXIS DEVIATION BASELINE ARTIFACT COMPLICATES ACCURATE INTERPRETATION Electronically Signed On 03-10-2018 6:22:40 EDT by Neno Ray
[2018-03-10] MEDS: Insulin LISPRO 300 UNITS/3 ML VIAL SQ SCH ×4 (08:53→20:38)
[2018-03-10] MEDS: Aspirin Enteric Coated 81 MG Tablet PO SCH (08:54)
[2018-03-10] MEDS: Lactobacillus 1 EACH CAP.SPRINK PO SCH (08:54)
[2018-03-10] MEDS: Metoprolol 100 MG TABLET PO SCH ×2 (08:54→20:37)
[2018-03-10] MEDS: Furosemide 40 MG/4 ML VIAL IVP SCH ×2 (08:54→18:20)
[2018-03-10] MEDS: Carbidopa/Levodopa 25/100 TABLET PO SCH ×4 (08:58→20:37)
--- NOTE | 2018-03-10 13:18 | Cardiology Consult Note ---
<Haja Lobo - Last Filed: 03/10/18 14:42> Date of Encounter: 03/10/18 Time of Encounter: 13:20 Assessment and Plan (1) Congestive heart failure Current Visit: Yes Status: Acute Per Cardiology: Chest x-ray stable. BNP 617. On IV Lasix 4omg BID. Net negative I&O - 2660ml. clinically appears improved. Lasix 40 mg by mouth every 8 hours at home most recently. Current echo shows EF 50-55%, normal functioning bioprosthetic aortic valve, no pulmonary hypertension, mild diastolic dysfunction, severely dilated left atrium, NSWMA. Qualifiers: Heart failure type: diastolic Heart failure chronicity: acute on chronic Qualified Code(s): I50.33 - Acute on chronic diastolic (congestive) heart failure (2) New onset atrial flutter Current Visit: Yes Status: Acute Per Cardiology: Suspected new onset. Rate controlled. Longest pause 3.1 seconds. On Lopressor 100 mg by mouth twice a day at home. Average heart rate the past 24 hours 56. Continue his current medical regimen area if develops any significant bradycardia can consider down titration of beta eve. Echo shows severely dilated left atrium. Regarding long-term anticoagulation, ideally patient would be on anticoagulation other than aspirin that he is taking currently, however does have history of anemia with blood transfusion as well as frequent falls with essential tremor and secondary parkinsonian. Patient and family aware of increased stroke risk. (3) Elevated troponin Current Visit: Yes Status: Acute Per Cardiology: Troponins elevated with peak of 0.13, flat and adynamic. Chest pain-free. Suspect demand ischemia and setting of CHF, KAITY on CKD, atrial flutter. Can consider further ischemic evaluation, however would not recommend catheterization at this point until kidney function improves. Patient and family contemplating follow-up with Dr. Estrada in a few days and outpatient setting. (4) Aortic valve replaced Current Visit: Yes Status: Chronic Per Cardiology: History of bioprosthetic aortic valve replacement in 1998 at [facility]. Current echo shows normal functioning by [place] aortic valve. (5) CKD (chronic kidney disease), stage III Current Visit: Yes Status: Chronic Per Cardiology: Continue to monitor. Avoid nephrotoxics. Discussion w patient/family: The assessment and plan as outlined above was discussed with the patient and/or family members who expressed understanding and agreement. All questions were answered. Thank you for involving us in the care of your patient. Please call with any questions. History of Present Illness Consult date: 03/10/18 Requesting physician: Akash Shankar Consult reason: Bradycardia, CHF Chief complaint: Edema, SOB History of present illness: Mr. Lux is a 87 year old male with relevant past medical history of bioprosthetic aortic valve replacement in 1998 mL [place], DM 2, hypertension, essential tremor/secondary Parkinsonism, hyperlipidemia. Last seen by Dr. Estrada in December 2017. Has pending appointment with him next week. Cardiology consult for worsening edema and short of breath. Also, concerns of low heart rates. Patient seen with daughters at bedside. Patient reportedly in therapy for balance disorder was noted to feel more short of breath with hypoxia and bradycardia. Apparently therapy was canceled and patient sent home. Family brought to ER for worsening concerns of shortness of breath at rest, weight gain , and increased edema to lower extremities. Patient reports no chest pain symptoms. He does report 6-7 pound weight gain over the past few weeks. Had diuretic dose increased by Dr. Estrada recently and by nephrology. Had been taking Lasix 40 mg by mouth 3 times a day most recently. He reports clinical improvement today regarding swelling and shortness of breath. Daughters verify. He denies any active bleeding or blood loss. Denies any known history of atrial fibrillation or atrial flutter. Reports frequent falls and has fallen 7-8 times in the past 1-2 months. Past Med Surg Social Fam HX - Past Medical History Attestation: Yes The following information was validated with the patient. Source: patient, old records reviewed, obtained from family Medical history: diabetes, hyperlipidemia, hypertension, renal disease, thyroid disease Psychiatric history: no psych history - Past Surgical History Surgical History: breast surgery, hip replacement (left), knee replacement ( right), other (AV replacement, varicose vein stripping, hemorrhoidectomy) - Social History Smoking Status: Never smoker Smokeless Tobacco Status: No Alcohol use: none Drug use: none - Family History Mother Living Status: Cause of : CVA Hx Family Cardiac Disorders: Yes (CVA, CHF, venous stasis) Hx Family Neurologic Disorders: Yes (Alzheimers) Father Living Status: Age at : 94 Cause of : CT Hx Family Cardiac Disorders: Yes (CT) Hx Family Endocrine Disorder: Yes (DM) Medications and Allergies Alendronate Sodium [Fosamax] 70 mg PO QWEEK 03/08/18 [History] Aspirin [Lo-Dose Aspirin EC] 81 mg PO DAILY 03/08/18 [History] Atorvastatin Calcium [Lipitor] 20 mg PO DAILY 03/08/18 [History] Carbidopa/Levodopa 25/100 [Sinemet 25/100] 1 tab PO 5XD 03/08/18 [History] Cyanocobalamin (Vitamin B-12) [Vitamin B12] 1,000 mcg PO DAILY 03/08/18 [History ] Ergocalciferol (VITAMIN D2) [Vitamin D2] 50,000 unit PO QWEEK 03/08/18 [History] Furosemide [Lasix] 40 mg PO 1500 03/08/18 [History] Furosemide [Lasix] 80 mg PO QAM 03/08/18 [History] Insulin Aspart Prot/Insuln Asp [Novolog Mix 70-30 Vial] 10 - 12 unit SQ BID 01/21 [History] Iron Polysaccharide Complex [Ferrex 150] 150 mg PO DAILY 03/08/18 [History] Lactobacillus Acidophilus [Acidophilus] 1 each PO DAILY 03/08/18 [History] Levothyroxine Sodium [Levoxyl] 88 mcg PO QAM 03/08/18 [History] Metformin HCl [Glucophage] 1,000 mg PO QAM 03/08/18 [History] Metformin HCl [Glucophage] 1,500 mg PO QPM 03/08/18 [History] Metoprolol [Lopressor] 100 mg PO BID 03/08/18 [History] Primidone [Mysoline] 250 mg PO BID 03/08/18 [History] Vitamin E (Dl,Tocopheryl Acet) [Vitamin E] 1,000 unit PO BID 03/08/18 [History] amLODIPine [Norvasc] 5 mg PO DAILY 03/08/18 [History] hydroCHLOROthiazide [Hydrochlorothiazide] 25 mg PO DAILY 03/08/18 [History] 3 Allergy/AdvReac Type Severity Reaction Status Date / Time No Known Allergies Allergy Verified 12/27/17 18:15 All Systems Review: The remainder of the systems were reviewed and are negative - Constitutional Constitutional: weight gain - Cardiovascular Cardiovascular: as per HPI, dyspnea at rest, leg edema Physical Examination Vital Signs, Last 4 Hours Temp Pulse Resp BP Pulse Ox 05/05/18 12:09 98 F 70 16 98/62 97 General: Conversant, No Apparent Distress HEENT: Atraumatic, Normocephaly, Mucus Membranes Moist Neck: No JVD, Normal carotid pulses Cardiac: Normal S1 and S2, No Murmur, Other (Irregularly irregular) Lungs: Normal Breath Sounds, No Wheeze, Rales, Rhonchi, Other (Slightly diminished bilateral bases) Neuro: Alert and responsive, No focal deficits noted Abdomen: Soft, Non-Tender Skin: No rashes noted on visualized skin Musculoskeletal: No Chest Wall Tenderness Extremities: No Clubbing, No Cyanosis, Normal Pulses, Other (+1-2 nonpitting edema to bilateral lower extremity) Results 03/09/18 05:48 03/09/18 05:48 Laboratory Tests 03/08/18 03/08/18 03/08/18 18:41 18:41 18:41 INR 1.1 Creatinine Est GFR (Non-Af Amer) Troponin I 0.11 H* B-Natriuretic Peptide 617 H 03/08/18 03/09/18 03/09/18 22:33 05:48 05:48 INR Creatinine 1.42 H Est GFR (Non-Af Amer) 47 L Troponin I 0.12 H* 0.13 H* B-Natriuretic Peptide 03/09/18 11:26 INR Creatinine Est GFR (Non-Af Amer) Troponin I 0.09 H* B-Natriuretic Peptide ITS Impressions Chest X-Ray 03/08/18 18:14 IMPRESSION: Low lung volume study with bibasilar opacities that likely reflect atelectasis. Trace effusions are difficult to exclude. Probable hiatal hernia. Stable cardiomegaly. D/ / 03/08/2018 18:35:24 Nolan Leonard MD / griselda Interpreting Provider: Nolan Leonard MD Echocardiogram 03/09/18 10:00 Impressions: LVEF 50-55%. Bioprosthetic aortic valve replacement with normal function. No pulmonary hypertension. Mild left ventricular diastolic dysfunction. Severely dilated left atrium. Left Ventricular Wall Motion: Rest Echo Findings All wall segments showed normal motion. Findings: Study Quality * Technically adequate exam. Right Ventricle * Normal right ventricular structure and function. Interatrial Septum * No evidence of PFO by color Doppler. Aorta * Normally sized aortic root. Pericardium * The pericardium appears normal. Aortic Valve * No aortic regurgitation. * No aortic stenosis. * Aortic valve not well visualized. * Mean gradient 20mmHg likely normal for bioprosthetic aortic valve * Bioprosthetic aortic valve replacement with normal function. Mitral Valve * Normal mitral valve structure. * No mitral stenosis. * Mild mitral regurgitation. Tricuspid Valve * No tricuspid stenosis. * Mild tricuspid regurgitation. * Estimated RVSP is 30 mmHg. * No pulmonary hypertension. Pulmonic Valve * No pulmonic stenosis. * Mild pulmonic regurgitation. Left Ventricle * LVEF 50-55%. * Mild left ventricular diastolic dysfunction. IVC * Normal IVC dimensions and inspiratory collapse. Left Atrium * Severely dilated left atrium. Right Atrium * Moderately dilated right atrium. Active Medications Acetaminophen (Tylenol) 650 mg PO Q6HR PRN PRN Reason: Mild Pain/Fever Stop: 09/07/18 22:17 Aspirin (Aspirin Ec) 81 mg PO DAILY [place] Stop: 09/08/18 09:01 Last Admin: 03/10/18 08:54 Dose: 81 mg Atorvastatin Calcium (Lipitor) 20 mg PO DAILY [place] Stop: 09/08/18 09:01 Last Admin: 03/10/18 08:54 Dose: 20 mg Carbidopa/Levodopa (Sinemet) 1 each PO 5XD [place] Stop: 09/08/18 00:01 Last Admin: 03/10/18 08:58 Dose: 1 each Dextrose/Water (Dextrose 50% (Syg)) 25 ml IVP AD PRN PRN Reason: Hypoglycemia Stop: 09/07/18 22:22 Furosemide (Lasix) 40 mg IVP BIDDIURETIC [place] Stop: 09/08/18 08:01 Last Admin: 03/10/18 08:54 Dose: 40 mg Glucagon (Glucagen) 1 mg IM ONCE PRN PRN Reason: Hypoglycemia Stop: 09/07/18 22:22 Glucose (Gluctose) 15 gm PO ONCE PRN PRN Reason: Hypoglycemia Stop: 09/07/18 22:22 Glucose (Gluctose) 30 gm PO ONCE PRN PRN Reason: Hypoglycemia Stop: 09/07/18 22:22 Heparin Sodium (Porcine) (Heparin) 5,000 unit SQ Q8HCO [place] Stop: 09/07/18 22:46 Last Admin: 03/10/18 05:22 Dose: 5,000 unit Dextrose (Dextrose 5%) 1,000 mls @ 100 mls/hr IVC .Q10H PRN PRN Reason: HYPOGLYCEMIA Stop: 09/07/18 22:22 Insulin Human Lispro (Humalog) 0 units SQ HS [place] PRN Reason: Protocol Stop: 09/08/18 21:01 Last Admin: 03/09/18 21:31 Dose: 5 units Insulin Human Lispro (Humalog) 0 units SQ TIDAC [place] PRN Reason: Protocol Stop: 09/09/18 07:31 Last Admin: 03/10/18 08:53 Dose: Not Given Lactobacillus Acidophilus/Rhamnosus (Culturelle) 1 each PO DAILY [place] Stop: 09/08/18 09:01 Last Admin: 03/10/18 08:54 Dose: 1 each Levothyroxine Sodium (Synthroid) 88 mcg PO 0630 [place] Stop: 09/08/18 06:31 Last Admin: 03/10/18 05:22 Dose: 88 mcg Metoprolol Tartrate (Lopressor) 100 mg PO BID [place] Stop: 09/08/18 09:01 Last Admin: 03/10/18 08:54 Dose: 100 mg Naloxone HCl (Narcan) 0.4 mg IVP Q2MIN PRN PRN Reason: SEE COMMENTS Stop: 09/07/18 22:17 Primidone (Mysoline) 250 mg PO BID [facility] Stop: 09/08/18 09:01 Last Admin: 03/10/18 08:54 Dose: 250 mg - EKG Interpretation EKG results cardiology: personally reviewed (Atrial flutter in the 60s), other ( Telemetry reviewed with average heart rate as 12 hours 56, slowest heart rate 48 during nocturnal hours. He remains in atrial flutter in the 50s.) Consult Discharge Plan - Plan Referrals: Boston Pearson MD [Primary Care Provider] - <Bia Ojeda - Last Filed: 03/10/18 15:50> Date of Encounter: 03/10/18 - Attending Attestation I examined this patient and my medical decision-making was reviewed with the [employer]. I agree with the documented findings, disposition and treatment plan as described. Mr. Lux presents with newly discovered atrial flutter and acute diastolic dysfunction. Agree with another 24h of IV diuresis. Heart rates are controlled on BB. Full anticoagulation was discussed with patient and family and decided against with their knowledge of CVA risk since patient has frequent falls. Echo this admission demonstrates normal LVEF, normal functioning bioprosthetic AVR. No acute ischemic ECG findings. Troponins flat and adynamic do not represent ACS. Will re-evaluate tomorrow. Assessment and Plan Discussion w patient/family: The assessment and plan as outlined above was discussed with the patient and/or family members who expressed understanding and agreement. All questions were answered. Thank you for involving us in the care of your patient. Please call with any questions. History of Present Illness History of present illness: Mr. Lux is a 87 year old male All Systems Review: The remainder of the systems were reviewed and are negative Physical Examination Vital Signs, Last 4 Hours Temp Pulse Resp BP Pulse Ox 03/10/18 15:36 98.5 F 69 16 118/72 93 03/10/18 12:09 98 F 70 16 98/62 97 Results 03/09/18 05:48 03/09/18 05:48
--- NOTE | 2018-03-10 17:19 | Internal Med Progress Note ---
Date of Encounter: 03/10/18 Time of Encounter: 17:17 - Assessment and plan (1) Congestive heart failure Current Visit: Yes Status: Acute Assessment and plan: Presented with congestive heart failure, shortness of breath bilateral lower extremity swelling. Reports that his shortness of breath is improving, he does not appear labored, lungs clear without rales to auscultation today. Bilateral lower extremities appear to be improving, nonpitting edema. TTE reveals LVEF of 50-55%, bioprosthetic aortic valve replacement with normal function, no pulmonary hypertension, mild left ventricular diastolic dysfunction , severely dilated left atrium. Cardiology has signed off Continue IV diuresis Continue fluid restriction Monitor I's and O's Continuous telemetry Consult to cardiology, new bradycardia and hypoxia Respiratory support per nasal cannula titrate when necessary to maintain SPO2 greater than 92% Qualifiers: Heart failure type: diastolic Heart failure chronicity: acute on chronic Qualified Code(s): I50.33 - Acute on chronic diastolic (congestive) heart failure (2) Lactic acidosis Current Visit: Yes Status: Resolved Assessment and plan: Result Likely caused by metformin use (3) Elevated troponin Current Visit: Yes Status: Acute Assessment and plan: Likely due to demand ischemia with congestive heart failure (4) New onset atrial flutter Current Visit: Yes Status: Acute Assessment and plan: Rate controlled On Lopressor, continue; noted to be sinus bradycardia on telemetry, average heart rate 56 Cardiology has seen and notes that of significant bradycardia develops consider down titration of beta eve Unable to anticoagulate due to frequent falls and history of anemia requiring blood transfusion (5) Essential hypertension Current Visit: Yes Status: Chronic Assessment and plan: Has remained stable throughout the stay continue antihypertensives (6) Diabetes mellitus Current Visit: Yes Status: Chronic Assessment and plan: Throughout the day blood glucose has continued to be elevated at times Increasing patient's dose to medium sliding scale coverage Add basal insulin daily at bedtime Qualifiers: Diabetes mellitus type: type 2 Diabetes mellitus mcfp insulin use: with mcfp use Diabetes mellitus complication status: with kidney complications Diabetes mellitus complication detail: with chronic kidney disease Chronic kidney disease stage: stage 3 (moderate) Qualified Code(s): E11.22 - Type 2 diabetes mellitus with diabetic chronic kidney disease; N18.3 - Chronic kidney disease, stage 3 (moderate); N18.3 - Chronic kidney disease, stage 3 (moderate); Z79.4 - terminal operator (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 of insulin; Z79.4 - prison (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 of insulin; Z79.4 - prison (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 of insulin; Z79.4 - terminal operator (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 of insulin (7) CKD (chronic kidney disease), stage III Current Visit: Yes Status: Chronic Assessment and plan: Serum creatinine at baseline, continue to avoid nephrotoxins monitor serum creatinine closely (8) Aortic valve replaced Current Visit: Yes Status: Chronic (9) Hypothyroidism Current Visit: Yes Status: Chronic Assessment and plan: Continue Synthroid Qualifiers: Hypothyroidism type: unspecified Qualified Code(s): E03.9 - Hypothyroidism , unspecified - Time Spent With Patient Total time spent is greater than 50% in coordination of care (as documented) at patient's floor/unit and/or counseling patient: 25 - 35 minutes - Subjective Interval history: Mr. Lux an 87-year-old male patient with a history of aortic stenosis and bioprosthetic valve, CKD, and diabetes. He presents due to worsening shortness of breath. Patient reports some baseline dyspnea however reports this is worsening over the last couple of months. In getting increasingly worse over the last 2-3 days. He is also noted to have some bilateral lower extremity swelling. Denied any chest pain, diaphoresis, nausea. Patient seen and examined at bedside today continues to deny chest pain reports that his shortness of breath is improving, also notes that his acuity swelling is improving. - Constitutional Vitals: Temp Pulse Resp BP Pulse Ox 98.5 F 69 16 118/72 93 03/10/18 15:36 03/10/18 15:36 03/10/18 15:36 03/10/18 15:36 03/10/18 15:36 General appearance: Present: A&O X 3, answers questions appropriately - Head Head exam: Present: atraumatic, normocephalic - Eye Eye exam: Present: PERRL, conjuntiva pink, sclera anicteric Pupils: Present: PERRL - Neck Neck exam general surgery: Present: supple, trachea midline. Absent: lymphadenopathy - Respiratory Respiratory exam: Present: CTAB. Absent: accessory muscle use, rales, rhonchi, wheezes - Cardiovascular Cardiovascular exam: Present: RRR, +S1, +S2. Absent: diastolic murmur, gallop, rubs, systolic murmur - GI/Abdominal GI/Abdominal exam: Present: normal bowel sounds, soft, no peritoneal signs. Absent: distended, tenderness - Extremities Exam Extremities exam: Present: normal capillary refill, pedal edema (Improving), warm, radial pulses palpable and symmetrical. Absent: calf tenderness, cyanotic - Neurological Exam Neurological exam: Present: CN II-XII intact, oriented X3, no focal deficits. Absent: pronater drift, facial droop, speech deficit - Skin Skin exam: Present: dry, intact Internal Medicine: Result - Labs CBC & Chem 7: 03/09/18 05:48 03/09/18 05:48 - ABG Interpretation ABG results: PT/INR, D-dimer PT 11.8 Seconds (9.4-12.1) 03/08/18 18:41 Consult Discharge Plan - Plan Referrals: Boston Pearson MD [Primary Care Provider] -
[2018-03-10] MEDS: Insulin DETEMIR 100 UNIT/ML X5UNITS SQ SCH (20:38)
[2018-03-10] MEDS: VITAMIN E PO SCH (20:39)
[2018-03-11] MEDS: Carbidopa/Levodopa 25/100 TABLET PO SCH ×5 (00:15→20:03)
[2018-03-11 05:18] LABS: Basophils % 0.4 %; Eosinophils # 0.2 K/mcL (0.0-0.6); Eosinophils % 3.5 %; Hematocrit 42.4 % (37.5-50.1); Hemoglobin 13.7 g/dL (12.9-16.9); Immature Granulocytes % 0.2 % (0-4); Lymphocytes % 21.5 %; Mean Corpuscular HGB Conc 32.3 g/dL (31.6-35.5); Mean Corpuscular Hemoglobin 30.5 pg (28.0-33.3); Mean Corpuscular Volume 94.4 fL (83.0-100.0); Mean Platelet Volume 9.8 fL (9.4-12.4); Monocytes # 0.5 K/mcL (0.0-1.3); Monocytes % 10.9 %; Platelet Count 167 K/mcL (140-400); Red Blood Count 4.49 M/mcL (4.19-5.50); Red Cell Distribution Width 19.7 % (11.5-14.5); Segmented Neutrophils % 63.5 %
[2018-03-11 05:34] LABS: Calcium 9.1 mg/dL (8.6-10.3); Potassium 4.7 mEq/L (3.5-5.1)
[2018-03-11] MEDS: *HR* Heparin 5,000 UNIT/ML VIAL SQ SCH ×3 (05:52→22:05)
--- NOTE | 2018-03-11 07:20 | Cardiology Progress Note ---
Date of Encounter: 03/11/18 Time of Encounter: 07:20 Assessment and Plan (1) Congestive heart failure Current Visit: Yes Status: Acute Per Cardiology: Chest x-ray stable. BNP 617. On IV Lasix 4omg BID. Net negative I&O - 2910ml. clinically appears improved. Lasix 40 mg by mouth every 8 hours at home most recently-- consider Dc on 80mg PO BID Current echo shows EF 50-55%, normal functioning bioprosthetic aortic valve, no pulmonary hypertension, mild diastolic dysfunction, severely dilated left atrium, NSWMA. Will add strict I&O , 1.5 L fluid restriction. Qualifiers: Heart failure type: diastolic Heart failure chronicity: acute on chronic Qualified Code(s): I50.33 - Acute on chronic diastolic (congestive) heart failure (2) New onset atrial flutter Current Visit: Yes Status: Acute Per Cardiology: Suspected new onset. Rate controlled-- avg HR past 12 hrs 68, currently aflutter 60's Longest pause 2.7 seconds. On Lopressor 100 mg by mouth twice a day at home. Continue his current medical regimen area if develops any significant bradycardia can consider down titration of beta eve. Echo shows severely dilated left atrium. Regarding long-term anticoagulation, ideally patient would be on anticoagulation other than aspirin that he is taking currently, however does have history of anemia with blood transfusion as well as frequent falls with essential tremor and secondary parkinsonian. Patient and family aware of increased stroke risk. (3) Elevated troponin Current Visit: Yes Status: Acute Per Cardiology: Troponins elevated with peak of 0.13, flat and adynamic. Chest pain-free. Suspect demand ischemia and setting of CHF, KAITY on CKD, atrial flutter. F/u as scheduled this week with primary Diaphragm Builder. No further ischemic eval at this juncture. Patient agrees with plan. Will s/o, f/u as planned, re-consult PRN. Discussed with Dr. Ojeda. (4) Aortic valve replaced Current Visit: Yes Status: Chronic Per Cardiology: History of bioprosthetic aortic valve replacement in 1998 at [facility]. Current echo shows normal functioning by bioprosthetic aortic valve. (5) CKD (chronic kidney disease), stage III Current Visit: Yes Status: Chronic Per Cardiology: Continue to monitor. Avoid nephrotoxics. Discussion w patient/family: The assessment and plan as outlined above was discussed with the patient and/or family members who expressed understanding and agreement. All questions were answered. Thank you for involving us in the care of your patient. Please call with any questions. Subjective Principal diagnosis: Aflutter Interval history: Reports SOB and edema drastically improved. Objective Vital Signs, Last 4 Hours Temp Pulse Resp BP Pulse Ox 03/11/18 06:58 97.5 F L 69 14 133/76 94 General: Conversant, No Apparent Distress HEENT: Atraumatic, Normocephaly, Mucus Membranes Moist Neck: No JVD, Normal carotid pulses Cardiac: Normal S1 and S2, No Murmur, Other (irregularly irregular) Lungs: Normal Breath Sounds, No Wheeze, Rales, Rhonchi Neuro: Alert and responsive, No focal deficits noted Abdomen: Soft, Non-Tender Skin: No rashes noted on visualized skin Musculoskeletal: No Chest Wall Tenderness Extremities: No Clubbing, No Cyanosis, Normal Pulses, Other (+1 nonpitting edema ) Results 03/11/18 04:07 03/11/18 04:07 Lab Results Laboratory Tests 03/11/18 04:07 Creatinine 1.62 H Est GFR (Non-Af Amer) 41 L Impressions Chest X-Ray 03/08/18 18:14 IMPRESSION: Low lung volume study with bibasilar opacities that likely reflect atelectasis. Trace effusions are difficult to exclude. Probable hiatal hernia. Stable cardiomegaly. D/ / 03/08/2018 18:35:24 Nolan Leonard MD / griselda Interpreting Provider: Nolan Leonard MD Intake & Output 03/08/18 03/09/18 03/10/18 03/11/18 23:59 23:59 23:59 23:59 Intake Total 460 / 460 480 / 480 Output Total 300 / 300 2250 / 2250 1300 / 1300 Balance -300 / -300 -1790 / -1790 -820 / -820 Weight 103.5 kg 102 kg Active Medications Acetaminophen (Tylenol) 650 mg PO Q6HR PRN PRN Reason: Mild Pain/Fever Stop: 09/07/18 22:17 Aspirin (Aspirin Ec) 81 mg PO DAILY [facility] Stop: 09/08/18 09:01 Last Admin: 03/10/18 08:54 Dose: 81 mg Atorvastatin Calcium (Lipitor) 20 mg PO DAILY [facility] Stop: 09/08/18 09:01 Last Admin: 03/10/18 08:54 Dose: 20 mg Carbidopa/Levodopa (Sinemet) 1 each PO 5XD [facility] Stop: 09/08/18 00:01 Last Admin: 03/11/18 00:15 Dose: 1 each Dextrose/Water (Dextrose 50% (Syg)) 25 ml IVP AD PRN PRN Reason: Hypoglycemia Stop: 09/07/18 22:22 Furosemide (Lasix) 40 mg IVP BIDDIURETIC [facility] Stop: 09/08/18 08:01 Last Admin: 03/10/18 18:20 Dose: 40 mg Glucagon (Glucagen) 1 mg IM ONCE PRN PRN Reason: Hypoglycemia Stop: 09/07/18 22:22 Glucose (Gluctose) 15 gm PO ONCE PRN PRN Reason: Hypoglycemia Stop: 09/07/18 22:22 Glucose (Gluctose) 30 gm PO ONCE PRN PRN Reason: Hypoglycemia Stop: 09/07/18 22:22 Heparin Sodium (Porcine) (Heparin) 5,000 unit SQ Q8HCO [facility] Stop: 09/07/18 22:46 Last Admin: 03/11/18 05:52 Dose: 5,000 unit Dextrose (Dextrose 5%) 1,000 mls @ 100 mls/hr IVC .Q10H PRN PRN Reason: HYPOGLYCEMIA Stop: 09/07/18 22:22 Insulin Detemir (Levemir) 16 unit 0.15 unit/kg (16 unit) SQ HS [facility] Stop: 09/09/18 21:01 Last Admin: 03/10/18 20:38 Dose: 16 unit Insulin Human Lispro (Humalog) 0 units SQ HS [facility] PRN Reason: Protocol Stop: 09/08/18 21:01 Last Admin: 03/10/18 20:38 Dose: 4 units Insulin Human Lispro (Humalog) 0 units SQ TIDAC [facility] PRN Reason: Protocol Stop: 09/09/18 07:31 Last Admin: 03/10/18 18:22 Dose: 10 units Lactobacillus Acidophilus/Rhamnosus (Culturelle) 1 each PO DAILY [facility] Stop: 09/08/18 09:01 Last Admin: 03/10/18 08:54 Dose: 1 each Levothyroxine Sodium (Synthroid) 88 mcg PO 0630 [facility] Stop: 09/08/18 06:31 Last Admin: 03/11/18 05:52 Dose: 88 mcg Metoprolol Tartrate (Lopressor) 100 mg PO BID [facility] Stop: 09/08/18 09:01 Last Admin: 03/10/18 20:37 Dose: 100 mg Naloxone HCl (Narcan) 0.4 mg IVP Q2MIN PRN PRN Reason: SEE COMMENTS Stop: 09/07/18 22:17 Pharmacy Profile Note (Patient Taking Own Medication) 1 each PO BID [facility] Stop: 09/09/18 21:01 Last Admin: 03/10/18 20:39 Dose: 1 each Primidone (Mysoline) 250 mg PO BID [facility] Stop: 09/08/18 09:01 Last Admin: 03/10/18 20:37 Dose: 250 mg - Imaging and Cardiology Echo: report reviewed - EKG Interpretation EKG results cardiology: other (Tele shows aflutter, avg HR 66 past 12 hrs, currently aflutter 60's, longest pause 2.7 secs.) Consult Discharge Plan - Plan Referrals: Boston Pearson MD [Primary Care Provider] -
[2018-03-11] MEDS: Insulin LISPRO 300 UNITS/3 ML VIAL SQ SCH ×4 (08:06→22:06)
[2018-03-11] MEDS: Aspirin Enteric Coated 81 MG Tablet PO SCH (08:09)
[2018-03-11] MEDS: VITAMIN E PO SCH ×2 (08:09→22:06)
[2018-03-11] MEDS: Lactobacillus 1 EACH CAP.SPRINK PO SCH (08:09)
[2018-03-11] MEDS: Metoprolol 100 MG TABLET PO SCH ×2 (08:09→22:06)
[2018-03-11] MEDS: Furosemide 40 MG/4 ML VIAL IVP SCH ×2 (08:10→18:16)
--- NOTE | 2018-03-11 13:26 | Internal Med Progress Note ---
Date of Encounter: 03/11/18 Time of Encounter: 11:30 - Assessment and plan (1) Congestive heart failure Current Visit: Yes Status: Acute Assessment and plan: Presented with congestive heart failure, shortness of breath bilateral lower extremity swelling. Reports that his shortness of breath is improving, he does not appear labored, lungs clear without rales to auscultation today. Bilateral lower extremities appear to be improving, nonpitting edema. TTE reveals LVEF of 50-55%, bioprosthetic aortic valve replacement with normal function, no pulmonary hypertension, mild left ventricular diastolic dysfunction , severely dilated left atrium. Cardiology has signed off Continue IV diuresis Continue fluid restriction Monitor I's and O's Continuous telemetry Consult to cardiology, new bradycardia and hypoxia Respiratory support per nasal cannula titrate when necessary to maintain SPO2 greater than 92% Qualifiers: Heart failure type: diastolic Heart failure chronicity: acute on chronic Qualified Code(s): I50.33 - Acute on chronic diastolic (congestive) heart failure (2) Lactic acidosis Current Visit: Yes Status: Resolved Assessment and plan: Result Likely caused by metformin use (3) Elevated troponin Current Visit: Yes Status: Acute Assessment and plan: Likely due to demand ischemia with congestive heart failure (4) New onset atrial flutter Current Visit: Yes Status: Acute Assessment and plan: Rate controlled On Lopressor, continue; noted to be sinus bradycardia on telemetry, average heart rate 56 Cardiology has seen and notes that of significant bradycardia develops consider down titration of beta eev Unable to anticoagulate due to frequent falls and history of anemia requiring blood transfusion (5) Essential hypertension Current Visit: Yes Status: Chronic Assessment and plan: Has remained stable throughout the stay continue antihypertensives (6) Diabetes mellitus Current Visit: Yes Status: Chronic Assessment and plan: Throughout the day blood glucose has continued to be elevated at times Increasing patient's dose to medium sliding scale coverage Add basal insulin daily at bedtime Qualifiers: Diabetes mellitus type: type 2 Diabetes mellitus alf insulin use: with alf use Diabetes mellitus complication status: with kidney complications Diabetes mellitus complication detail: with chronic kidney disease Chronic kidney disease stage: stage 3 (moderate) Qualified Code(s): E11.22 - Type 2 diabetes mellitus with diabetic chronic kidney disease; N18.3 - Chronic kidney disease, stage 3 (moderate); N18.3 - Chronic kidney disease, stage 3 (moderate); Z79.4 - termite treater (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 of insulin; Z79.4 - USP (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 of insulin; Z79.4 - USP (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 of insulin; Z79.4 - termite treater (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 of insulin (7) CKD (chronic kidney disease), stage III Current Visit: Yes Status: Chronic Assessment and plan: Serum creatinine at baseline, continue to avoid nephrotoxins monitor serum creatinine closely (8) Aortic valve replaced Current Visit: Yes Status: Chronic (9) Hypothyroidism Current Visit: Yes Status: Chronic Assessment and plan: Continue Synthroid Qualifiers: Hypothyroidism type: unspecified Qualified Code(s): E03.9 - Hypothyroidism , unspecified - Time Spent With Patient Total time spent is greater than 50% in coordination of care (as documented) at patient's floor/unit and/or counseling patient: 25 - 35 minutes - Subjective Interval history: Mr. Lux an 87-year-old male patient with a history of aortic stenosis and bioprosthetic valve, CKD, and diabetes. He presents due to worsening shortness of breath. Patient reports some baseline dyspnea however reports this is worsening over the last couple of months. In getting increasingly worse over the last 2-3 days. He is also noted to have some bilateral lower extremity swelling. Denied any chest pain, diaphoresis, nausea. Patient seen and examined at bedside today continues to deny chest pain. Shortness of breath has improved at rest but is still mildly short of breath with activity. and patient is progressing towards baseline. Continues to have some mild bilateral lower extremity swelling but is now nonpitting. Patient no longer requiring oxygen and is now on room air today without respiratory distress. Due to continued exertional shortness breath the patient would benefit from additional diuresis and required an additional day stay. - Constitutional Vitals: Temp Pulse Resp BP Pulse Ox 98.4 F 69 14 100/61 94 03/11/18 11:47 03/11/18 11:47 03/11/18 11:47 03/11/18 11:47 03/11/18 11:47 General appearance: Present: A&O X 3, answers questions appropriately - Head Head exam: Present: atraumatic, normocephalic - Eye Eye exam: Present: PERRL, conjuntiva pink, sclera anicteric Pupils: Present: PERRL - Neck Neck exam general surgery: Present: supple, trachea midline. Absent: lymphadenopathy - Respiratory Respiratory exam: Present: CTAB. Absent: accessory muscle use, rales, rhonchi, wheezes - Cardiovascular Cardiovascular exam: Present: RRR, +S1, +S2. Absent: diastolic murmur, gallop, rubs, systolic murmur - GI/Abdominal GI/Abdominal exam: Present: normal bowel sounds, soft, no peritoneal signs. Absent: distended, tenderness - Extremities Exam Extremities exam: Present: pedal edema (Improving; generalized nonpitting), warm , radial pulses palpable and symmetrical. Absent: calf tenderness, cyanotic - Expanded Lower Extremities Exam Lower Leg exam: Present: swelling (Improving, generalized nonpitting) - Neurological Exam Neurological exam: Present: CN II-XII intact, oriented X3, no focal deficits. Absent: pronater drift, facial droop, speech deficit - Skin Skin exam: Present: dry, intact Internal Medicine: Result - Labs CBC & Chem 7: 03/11/18 04:07 03/11/18 04:07 Labs: Short CBC 03/11/18 Range/Units 04:07 WBC 4.8 (4.3-11.1) K/mcL Hgb 13.7 (12.9-16.9) g/dL Hct 42.4 (37.5-50.1) % Plt Count 167 (140-400) K/mcL Neutrophils # 3.0 (1.6-8.9) K/mcL BMP 03/11/18 04:07 Sodium 141 Potassium 4.7 Chloride 98 Carbon Dioxide 37 H BUN 28 H Creatinine 1.62 H Glucose 63 L Calcium 9.1 - ABG Interpretation ABG results: PT/INR, D-dimer PT 11.8 Seconds (9.4-12.1) 03/08/18 18:41 Consult Discharge Plan - Plan Referrals: Boston Pearson MD [Primary Care Provider] -
[2018-03-11] MEDS: Insulin DETEMIR 100 UNIT/ML X5UNITS SQ SCH (22:07)
[2018-03-12] MEDS: Carbidopa/Levodopa 25/100 TABLET PO SCH ×5 (00:33→20:50)
[2018-03-12] MEDS: *HR* Heparin 5,000 UNIT/ML VIAL SQ SCH ×3 (06:04→20:50)
[2018-03-12] MEDS: Insulin LISPRO 300 UNITS/3 ML VIAL SQ SCH ×3 (08:08→17:23)
[2018-03-12] MEDS: Furosemide 40 MG/4 ML VIAL IVP SCH ×2 (08:14→17:23)
[2018-03-12] MEDS: Metoprolol 100 MG TABLET PO SCH ×2 (08:15→20:50)
[2018-03-12] MEDS: Lactobacillus 1 EACH CAP.SPRINK PO SCH (08:15)
[2018-03-12] MEDS: Aspirin Enteric Coated 81 MG Tablet PO SCH (08:15)
[2018-03-12 08:16] LABS: BUN/Creatinine Ratio 24 (6-26); Blood Urea Nitrogen 29 mg/dL (8-23); Calcium 9.3 mg/dL (8.6-10.3); Carbon Dioxide 33 mEq/L (23-29); Chloride 99 mEq/L (98-107); Glucose 65 mg/dL (70-105); Osmolality,Calculated 296 (280-300); Potassium 4.4 mEq/L (3.5-5.1); Sodium 141 mEq/L (136-145); eGFR For African Americans > 60 (> 60); eGFR For Non-African Americans 56 (> 60)
[2018-03-12] MEDS: VITAMIN E PO SCH ×2 (08:16→20:51)
[2018-03-12 08:35] LABS: Basophils % 0.3 %; Eosinophils # 0.1 K/mcL (0.0-0.6); Hematocrit 44.4 % (37.5-50.1); Immature Granulocytes % 0.3 % (0-4); Lymphocytes # 1.1 K/mcL (0.6-4.6); Lymphocytes % 17.8 %; Mean Corpuscular HGB Conc 31.5 g/dL (31.6-35.5); Mean Corpuscular Hemoglobin 29.5 pg (28.0-33.3); Mean Corpuscular Volume 93.7 fL (83.0-100.0); Mean Platelet Volume 9.5 fL (9.4-12.4); Monocytes # 0.5 K/mcL (0.0-1.3); Monocytes % 8.8 %; Neutrophils # 4.3 K/mcL (1.6-8.9); Platelet Count 171 K/mcL (140-400); Red Blood Count 4.74 M/mcL (4.19-5.50); Red Cell Distribution Width 19.5 % (11.5-14.5); Segmented Neutrophils % 70.8 %
--- NOTE | 2018-03-12 13:52 | Discharge Summary ---
- NOTES TO OUTPATIENT PROVIDER Notes to Outpatient Provider: Admitted with CHF and fluid overload. Required IV diuresis. Ordered to take an extra dose of lasix for 3 days following discharge and f/u with PCP for further evaluation. Instructed to return should swelling worsen/persist or dyspnea return. Orders not resulted at time of discharge: Pending orders 03/13/18 04:00 BMP [Basic Metabolic Panel] AM 0400 Complete Blood Count [HEME] AM 0400 Date of Encounter: 03/12/18 Time of Encounter: 13:48 - Discharge Diagnosis (1) Congestive heart failure Priority: Primary Status: Acute Qualifiers: Heart failure type: diastolic Heart failure chronicity: acute on chronic Qualified Code(s): I50.33 - Acute on chronic diastolic (congestive) heart failure (2) Lactic acidosis Priority: Secondary Status: Resolved (3) Elevated troponin Priority: Secondary Status: Acute (4) New onset atrial flutter Priority: Secondary Status: Acute (5) Essential hypertension Priority: Secondary Status: Chronic (6) Diabetes mellitus Priority: Secondary Status: Chronic Qualifiers: Diabetes mellitus type: type 2 Diabetes mellitus care home insulin use: with care home use Diabetes mellitus complication status: with kidney complications Diabetes mellitus complication detail: with chronic kidney disease Chronic kidney disease stage: stage 3 (moderate) Qualified Code(s): E11.22 - Type 2 diabetes mellitus with diabetic chronic kidney disease; N18.3 - Chronic kidney disease, stage 3 (moderate); N18.3 - Chronic kidney disease, stage 3 (moderate); Z79.4 - nursing home (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 of insulin; Z79.4 - plate inspector (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 of insulin; Z79.4 - nursing home (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 of insulin; Z79.4 - nursing home (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 of insulin (7) CKD (chronic kidney disease), stage III Priority: Secondary Status: Chronic (8) Aortic valve replaced Priority: Secondary Status: Chronic (9) Hypothyroidism Priority: Secondary Status: Chronic Qualifiers: Hypothyroidism type: unspecified Qualified Code(s): E03.9 - Hypothyroidism , unspecified Hospital course: Mr. Lux is a 87 year old male Discharge discussed with: patient, nurse - Time Spent with Patient Total time spent providing and/or coordinating discharge services: Greater than 30 minutes - Discharge Medications Home Medications: Alendronate Sodium [Fosamax] 70 mg PO QWEEK 05/03/18 [History] Aspirin [Lo-Dose Aspirin EC] 81 mg PO DAILY 03/08/18 [History] Atorvastatin Calcium [Lipitor] 20 mg PO DAILY 03/08/18 [History] Carbidopa/Levodopa 25/100 [Sinemet 25/100] 1 tab PO 5XD 03/08/18 [History] Cyanocobalamin (Vitamin B-12) [Vitamin B12] 1,000 mcg PO DAILY 03/08/18 [History ] Ergocalciferol (VITAMIN D2) [Vitamin D2] 50,000 unit PO QWEEK 03/08/18 [History] Furosemide [Lasix] 40 mg PO 1500 03/08/18 [History] Furosemide [Lasix] 80 mg PO QAM 03/08/18 [History] Insulin Aspart Prot/Insuln Asp [Novolog Mix 70-30 Vial] 10 - 12 unit SQ BID 01/21 [History] Iron Polysaccharide Complex [Ferrex 150] 150 mg PO DAILY 03/08/18 [History] Lactobacillus Acidophilus [Acidophilus] 1 each PO DAILY 03/08/18 [History] Levothyroxine Sodium [Levoxyl] 88 mcg PO QAM 03/08/18 [History] Metformin HCl [Glucophage] 1,000 mg PO QAM 03/08/18 [History] Metformin HCl [Glucophage] 1,500 mg PO QPM 03/08/18 [History] Metoprolol [Lopressor] 100 mg PO BID 03/08/18 [History] Primidone [Mysoline] 250 mg PO BID 03/08/18 [History] Vitamin E (Dl,Tocopheryl Acet) [Vitamin E] 1,000 unit PO BID 03/08/18 [History] amLODIPine [Norvasc] 5 mg PO DAILY 03/08/18 [History] hydroCHLOROthiazide [Hydrochlorothiazide] 25 mg PO DAILY 03/08/18 [History] Allergies/Adverse Reactions: 3 Allergy/AdvReac Type Severity Reaction Status Date / Time No Known Allergies Allergy Verified 12/27/17 18:15 Date of admission: 03/08/18 22:16 Primary care physician: Boston Pearson MD Consults: 03/09/18 09:01 Consult to Nurse Navigator [CONS] Routine Comment: 03/09/18 15:14 Consult to Occupational Therapy [CONS] Routine Comment: Evaluate, develop and implement POC Reason for Consult: D/C PLANNING. DOES PATIENT NEED HOME HEALTH FOR THERAPY OR TO CONTINUE WITH OUTPATIENT THERAPY Does patient have active BEDREST order?: No Is patient medically & hemodynamically stable?: Yes Consult to Physical Therapy [CONS] Routine Comment: Evaluate, develop and implement POC Reason for Consult: D/C PLANNING. DOES PATIENT NEED HOME HEALTH OR TO CONTINUE WITH POUTPATIENT THERAPY Does patient have active BEDREST order?: No Is patient medically & hemodynamically stable?: Yes 03/09/18 18:39 Consult to Cardiology [CONS] Routine Comment: Consulting Provider: Cardiology Meryl Reason for Consult: Patient experienced symptomatic bradycardia and severe hypoxia with activity Time Notified: 18:40 Call Completed: Yes Discharging clinician: Akash Shankar Anticipated date of discharge: 03/12/18 - Constitutional Vitals: Temp Pulse Resp BP Pulse Ox 97.9 F 70 16 100/60 94 03/12/18 11:01 03/12/18 11:01 03/12/18 11:01 03/12/18 11:01 03/12/18 11:01 General appearance: Present: A&O X 3, answers questions appropriately - Head Head exam: Present: atraumatic, normocephalic - Eye Eye exam: Present: PERRL, conjuntiva pink, sclera anicteric Pupils: Present: PERRL - Neck Neck exam general surgery: Present: supple, trachea midline. Absent: lymphadenopathy - Respiratory Respiratory exam: Present: CTAB. Absent: accessory muscle use, rales, rhonchi, wheezes - Cardiovascular Cardiovascular exam: Present: RRR, +S1, +S2. Absent: diastolic murmur, gallop, rubs, systolic murmur - GI/Abdominal GI/Abdominal exam: Present: normal bowel sounds, soft, no peritoneal signs. Absent: distended, tenderness - Extremities Exam Extremities exam: Present: warm, radial pulses palpable and symmetrical. Absent : calf tenderness, cyanotic, pedal edema - Neurological Exam Neurological exam: Present: CN II-XII intact, oriented X3, no focal deficits. Absent: pronater drift, facial droop, speech deficit - Skin Skin exam: Present: dry, intact - Patient Status Disposition: Home, Self-Care Condition: Fair Overall status at discharge: patient is progressing back to baseline - Discharge Instructions Follow Up With: Boston Pearson MD [Primary Care Provider] -
--- NOTE | 2018-03-12 18:35 | Internal Med Progress Note ---
Date of Encounter: 03/12/18 Time of Encounter: 18:33 - Assessment and plan (1) Congestive heart failure Current Visit: Yes Status: Acute Assessment and plan: Presented with congestive heart failure, shortness of breath bilateral lower extremity swelling. Reports that his shortness of breath is improving, respirations are easy without distress, lungs are CTA AP and L. Straley edema has subsided TTE reveals LVEF of 50-55%, bioprosthetic aortic valve replacement with normal function, no pulmonary hypertension, mild left ventricular diastolic dysfunction , severely dilated left atrium. Not ready for discharge. Attempted to ambulate patient in the [place] today and became hypoxic in the high 70s. Benefit from additional IV diuresis Continue fluid restriction Monitor I's and O's Continuous telemetry Respiratory support per nasal cannula titrate when necessary to maintain SPO2 greater than 92% Qualifiers: Heart failure type: diastolic Heart failure chronicity: acute on chronic Qualified Code(s): I50.33 - Acute on chronic diastolic (congestive) heart failure (2) Lactic acidosis Current Visit: Yes Status: Resolved (3) Elevated troponin Current Visit: Yes Status: Resolved (4) New onset atrial flutter Current Visit: Yes Status: Acute Assessment and plan: Rate controlled, telemetry reviewed, no abnormalities overnight Cardiology has seen and notes that of significant bradycardia develops consider down titration of beta eve Unable to anticoagulate due to frequent falls and history of anemia requiring blood transfusion (5) Essential hypertension Current Visit: Yes Status: Chronic Assessment and plan: Stable, continue anti-HTN medications (6) Diabetes mellitus Current Visit: Yes Status: Chronic Assessment and plan: Increase sliding scale to high coverage and basal insulin Qualifiers: Diabetes mellitus type: type 2 Diabetes mellitus superintendent container terminal insulin use: with senior care use Diabetes mellitus complication status: with kidney complications Diabetes mellitus complication detail: with chronic kidney disease Chronic kidney disease stage: stage 3 (moderate) Qualified Code(s): E11.22 - Type 2 diabetes mellitus with diabetic chronic kidney disease; N18.3 - Chronic kidney disease, stage 3 (moderate); N18.3 - Chronic kidney disease, stage 3 (moderate); Z79.4 - [facility] (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 of insulin; Z79.4 - [facility] (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 of insulin; Z79.4 - [facility] (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 of insulin; Z79.4 - terminal clerk (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 of insulin (7) CKD (chronic kidney disease), stage III Current Visit: Yes Status: Chronic Assessment and plan: Improving, continue to monitor serum creatinine closely (8) Aortic valve replaced Current Visit: Yes Status: Chronic (9) Hypothyroidism Current Visit: Yes Status: Chronic Assessment and plan: Continue Synthroid Qualifiers: Hypothyroidism type: unspecified Qualified Code(s): E03.9 - Hypothyroidism , unspecified - Time Spent With Patient Total time spent is greater than 50% in coordination of care (as documented) at patient's floor/unit and/or counseling patient: Greater than 35 minutes - Subjective Interval history: Mr. Lux an 87-year-old male patient with a history of aortic stenosis and bioprosthetic valve, CKD, and diabetes. He presents due to worsening shortness of breath. Patient reports some baseline dyspnea however reports this is worsening over the last couple of months. In getting increasingly worse over the last 2-3 days. He is also noted to have some bilateral lower extremity swelling. Denied any chest pain, diaphoresis, nausea. Patient seen and examined at bedside today continues to deny chest pain. Shortness of breath has improved at rest but is still mildly short of breath with activity. and patient is progressing towards baseline. Her lower extremity swelling has resolved. Due to continued exertional hypoxia the patient would benefit from additional diuresis and required an additional day stay. - Constitutional Vitals: Temp Pulse Resp BP Pulse Ox 98.5 F 71 18 106/69 97 03/12/18 14:55 03/12/18 14:55 03/12/18 14:55 03/12/18 14:55 03/12/18 15:13 General appearance: Present: A&O X 3, answers questions appropriately - Head Head exam: Present: atraumatic, normocephalic - Eye Eye exam: Present: PERRL, conjuntiva pink, sclera anicteric Pupils: Present: PERRL - Neck Neck exam general surgery: Present: supple, trachea midline. Absent: lymphadenopathy - Respiratory Respiratory exam: Present: decreased breath sounds, CTAB. Absent: accessory muscle use, rales, rhonchi, wheezes - Cardiovascular Cardiovascular exam: Present: RRR, +S1, +S2. Absent: diastolic murmur, gallop, rubs, systolic murmur - GI/Abdominal GI/Abdominal exam: Present: normal bowel sounds, soft, no peritoneal signs. Absent: distended, tenderness - Extremities Exam Extremities exam: Present: warm, radial pulses palpable and symmetrical. Absent : calf tenderness, cyanotic, pedal edema - Neurological Exam Neurological exam: Present: CN II-XII intact, oriented X3, no focal deficits. Absent: pronater drift, facial droop, speech deficit - Skin Skin exam: Present: dry, intact Internal Medicine: Result - Labs CBC & Chem 7: 03/12/18 06:33 03/12/18 06:33 Labs: Short CBC 03/12/18 Range/Units 06:33 WBC 6.1 (4.3-11.1) K/mcL Hgb 14.0 (12.9-16.9) g/dL Hct 44.4 (37.5-50.1) % Plt Count 171 (140-400) K/mcL Neutrophils # 4.3 (1.6-8.9) K/mcL BMP 03/12/18 06:33 Sodium 141 Potassium 4.4 Chloride 99 Carbon Dioxide 33 H BUN 29 H Creatinine 1.23 Glucose 65 L Calcium 9.3 - ABG Interpretation ABG results: PT/INR, D-dimer PT 11.8 Seconds (9.4-12.1) 03/08/18 18:41 Consult Discharge Plan - Plan Referrals: Boston Pearson MD [Primary Care Provider] -
[2018-03-12] MEDS: Insulin DETEMIR 100 UNIT/ML X5UNITS SQ SCH (20:50)
[2018-03-12] MEDS ORDERED: Insulin LISPRO 300 UNITS/3 ML VIAL SQ SCH (21:00)
[2018-03-13] MEDS: Carbidopa/Levodopa 25/100 TABLET PO SCH ×3 (00:16→11:47)
[2018-03-13] MEDS: *HR* Heparin 5,000 UNIT/ML VIAL SQ SCH ×2 (05:22→15:10)
[2018-03-13 07:32] LABS: BUN/Creatinine Ratio 24 (6-26); Blood Urea Nitrogen 31 mg/dL (8-23); Calcium 9.1 mg/dL (8.6-10.3); Carbon Dioxide 30 mEq/L (23-29); Chloride 101 mEq/L (98-107); Glucose 95 mg/dL (70-105); Osmolality,Calculated 304 (280-300); Potassium 4.5 mEq/L (3.5-5.1); Sodium 144 mEq/L (136-145); eGFR For African Americans > 60 (> 60); eGFR For Non-African Americans 53 (> 60)
[2018-03-13 07:56] LABS: Basophils % 0.2 %; Eosinophils # 0.1 K/mcL (0.0-0.6); Eosinophils % 2.6 %; Hematocrit 43.6 % (37.5-50.1); Hemoglobin 13.9 g/dL (12.9-16.9); Immature Granulocytes % 0.4 % (0-4); Lymphocytes # 1.1 K/mcL (0.6-4.6); Lymphocytes % 20.8 %; Mean Corpuscular HGB Conc 31.9 g/dL (31.6-35.5); Mean Platelet Volume 9.4 fL (9.4-12.4); Monocytes # 0.6 K/mcL (0.0-1.3); Monocytes % 11.3 %; Neutrophils # 3.5 K/mcL (1.6-8.9); Platelet Count 164 K/mcL (140-400); Red Blood Count 4.64 M/mcL (4.19-5.50); Red Cell Distribution Width 19.7 % (11.5-14.5); Segmented Neutrophils % 64.7 %
[2018-03-13] MEDS: Insulin LISPRO 300 UNITS/3 ML VIAL SQ SCH ×2 (08:06→11:47)
[2018-03-13] MEDS: Furosemide 40 MG/4 ML VIAL IVP SCH (08:12)
[2018-03-13] MEDS: Aspirin Enteric Coated 81 MG Tablet PO SCH (08:13)
[2018-03-13] MEDS: Lactobacillus 1 EACH CAP.SPRINK PO SCH (08:13)
[2018-03-13] MEDS: Metoprolol 100 MG TABLET PO SCH (08:13)
[2018-03-13] MEDS: VITAMIN E PO SCH (08:14)
[2018-03-13 11:10] VITALS: BP 99/63
--- NOTE | 2018-03-13 12:58 | Discharge Summary ---
- NOTES TO OUTPATIENT PROVIDER Notes to Outpatient Provider: Pt was admitted for new onset A-flutter, CHF. Pt was diuresed and he remains mildly WHITLOCK, did not qualify for home 02. He will need close follow up for CHF and repeat education. Date of Encounter: 03/13/18 Time of Encounter: 09:30 - Discharge Diagnosis (1) Congestive heart failure Priority: Primary Status: Chronic Assessment and Plan: Acute exacerbation of chronic diastolic dysfunction. Pt reports WHITLOCK, did not qualify for home 02. No SOB at rest, resps easy with coarse ronchi in bilateral bases. No peripheral edema. Pt states that he feels much better. Discussed discharge care with granddaughter and daughter, verbalized understanding of fluid restriction and sodium limit at home. Qualifiers: Heart failure type: diastolic Heart failure chronicity: acute on chronic Qualified Code(s): I50.33 - Acute on chronic diastolic (congestive) heart failure (2) Lactic acidosis Priority: Secondary Status: Resolved Assessment and Plan: Resolved (3) Elevated troponin Priority: Secondary Status: Resolved Assessment and Plan: Likely due to demand ischemia secondary to diastolic CHF. Pt denies chest pain or SOB at rest, has WHITLOCK. Pt with trace pleural effusions that could be contributory. Echo as stated below. Chest X-Ray 03/08/18 18:14 IMPRESSION: Low lung volume study with bibasilar opacities that likely reflect atelectasis. Trace effusions are difficult to exclude. Probable hiatal hernia. Stable cardiomegaly. D/ / 03/08/2018 18:35:24 Nolan Leonard MD / griselda Interpreting Provider: Nolan Leonard MD Echocardiogram 03/09/18 10:00 Impressions: LVEF 50-55%. Bioprosthetic aortic valve replacement with normal function. No pulmonary hypertension. Mild left ventricular diastolic dysfunction. Severely dilated left atrium. (4) New onset atrial flutter Priority: Secondary Status: Acute Assessment and Plan: Rate controlled, rate in the 70s and 80s. Cardiology has seen pt and recommends that if bradycardia devolops, titrate down the BB. Unable to anticoagulate due to frequent falls and history of anemia requiring blood transfusion (5) Essential hypertension Priority: Secondary Status: Chronic Assessment and Plan: Well controlled. Continue to monitor and continue current medications. (6) Diabetes mellitus Priority: Secondary Status: Chronic Assessment and Plan: Continue SSI, accuchecks achs, and diabetic diet. Qualifiers: Diabetes mellitus type: type 2 Diabetes mellitus mcc insulin use: with mcc use Diabetes mellitus complication status: with kidney complications Diabetes mellitus complication detail: with chronic kidney disease Chronic kidney disease stage: stage 3 (moderate) Qualified Code(s): E11.22 - Type 2 diabetes mellitus with diabetic chronic kidney disease; N18.3 - Chronic kidney disease, stage 3 (moderate); N18.3 - Chronic kidney disease, stage 3 (moderate); Z79.4 - [facility] (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 of insulin; Z79.4 - [facility] (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 of insulin; Z79.4 - oven unloader (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 of insulin; Z79.4 - penitentiary (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 of insulin (7) CKD (chronic kidney disease), stage III Priority: Secondary Status: Chronic Assessment and Plan: . Continue to monitor labs and avoid nephrotoxins. (8) Aortic valve replaced Priority: Secondary Status: Chronic Assessment and Plan: Echo shows LVEF of 50-55%, bioprosthetic valve with normal function. (9) Hypothyroidism Priority: Secondary Status: Chronic Assessment and Plan: Continue Synthroid, follow with PCP. Qualifiers: Hypothyroidism type: unspecified Qualified Code(s): E03.9 - Hypothyroidism , unspecified (10) DVT prophylaxis Priority: Secondary Status: Acute Assessment and Plan: Heparin SQ TID. (11) Falls frequently Priority: Secondary Status: Chronic Assessment and Plan: Pt and family report more than 20 falls in the last 6 months. PT/OT recommend inpatient swing bed and therapy. Pt is agreeable and he has been accepted to rehab facility today. Falls likely secondary to SOB secondary to CHF, valve replacement, and overall physical deconditioning. Discharge to inpatient swing bed. Hospital course: Mr. Lux is a 87 year old male with PMH of aortic stenosis and posthetic valve replacement, DM, CKD, SOB. Pt presented to the ED with WHITLOCK for several months, worse over the last 2-3 days prior to admission and BLE edema, intermittent dry cough. Pt was evaluated by cardiology for CHF with mildly elevated BNP. Pt had negative diuresis, approximately 4.6 liters and states that he was feeling better. Peripheral edema has resolved. WHITLOCK remains, is better than on admission. Pt did not qualify for home 02. Pt was to be discharged home with home health and PT/OT when primary RN states that PT is recommending that pt go to inpatient rehab. Pt has had greater than 20 falls in the last 6 months at home. Pt is agreeable and will be discharged in stable condition to inpatient swing bed. Discharge discussed with: patient, family, nurse - Time Spent with Patient Total time spent providing and/or coordinating discharge services: Less than 30 minutes - Discharge Medications Home Medications: Alendronate Sodium [Fosamax] 70 mg PO QWEEK 03/08/18 [History] Aspirin [Lo-Dose Aspirin EC] 81 mg PO DAILY 03/08/18 [History] Atorvastatin Calcium [Lipitor] 20 mg PO DAILY 03/08/18 [History] Carbidopa/Levodopa 25/100 [Sinemet 25/100] 1 tab PO 5XD 03/08/18 [History] Cyanocobalamin (Vitamin B-12) [Vitamin B12] 1,000 mcg PO DAILY 03/08/18 [History ] Ergocalciferol (VITAMIN D2) [Vitamin D2] 50,000 unit PO QWEEK 03/08/18 [History] Furosemide [Lasix] 40 mg PO 1500 03/08/18 [History] Furosemide [Lasix] 80 mg PO QAM 03/08/18 [History] Insulin Aspart Prot/Insuln Asp [Novolog Mix 70-30 Vial] 10 - 12 unit SQ BID 01/21 [History] Iron Polysaccharide Complex [Ferrex 150] 150 mg PO DAILY 03/08/18 [History] Lactobacillus Acidophilus [Acidophilus] 1 each PO DAILY 03/08/18 [History] Levothyroxine Sodium [Levoxyl] 88 mcg PO QAM 03/08/18 [History] Metformin HCl [Glucophage] 1,000 mg PO QAM 03/08/18 [History] Metformin HCl [Glucophage] 1,500 mg PO QPM 03/08/18 [History] Metoprolol [Lopressor] 100 mg PO BID 03/08/18 [History] Primidone [Mysoline] 250 mg PO BID 03/08/18 [History] Vitamin E (Dl,Tocopheryl Acet) [Vitamin E] 1,000 unit PO BID 03/08/18 [History] amLODIPine [Norvasc] 5 mg PO DAILY 03/08/18 [History] hydroCHLOROthiazide [Hydrochlorothiazide] 25 mg PO DAILY 03/08/18 [History] Allergies/Adverse Reactions: 3 Allergy/AdvReac Type Severity Reaction Status Date / Time No Known Allergies Allergy Verified 12/27/17 18:15 Date of admission: 03/08/18 22:16 Primary care physician: Boston Pearson MD Consults: 03/09/18 09:01 Consult to Nurse Navigator [CONS] Routine Comment: 03/09/18 15:14 Consult to Occupational Therapy [CONS] Routine Comment: Evaluate, develop and implement POC Reason for Consult: D/C PLANNING. DOES PATIENT NEED HOME HEALTH FOR THERAPY OR TO CONTINUE WITH OUTPATIENT THERAPY Does patient have active BEDREST order?: No Is patient medically & hemodynamically stable?: Yes Consult to Physical Therapy [CONS] Routine Comment: Evaluate, develop and implement POC Reason for Consult: D/C PLANNING. DOES PATIENT NEED HOME HEALTH OR TO CONTINUE WITH POUTPATIENT THERAPY Does patient have active BEDREST order?: No Is patient medically & hemodynamically stable?: Yes 03/09/18 18:39 Consult to Cardiology [CONS] Routine Comment: Consulting Provider: Salty Sheth Reason for Consult: Patient experienced symptomatic bradycardia and severe hypoxia with activity Time Notified: 18:40 Call Completed: Yes Discharging clinician: Fifi Burgess Anticipated date of discharge: 03/13/18 - Constitutional Vitals: Temp Pulse Resp BP Pulse Ox 97.8 F 71 17 99/63 94 03/13/18 11:09 03/13/18 11:09 03/13/18 11:09 03/13/18 11:09 03/13/18 11:09 General appearance: Present: cooperative, A&O X 3, pleasant, no acute distress, answers questions appropriately - Head Head exam: Present: atraumatic, normal inspection, normocephalic - Eye Eye exam: Present: normal appearance, conjuntiva pink, sclera anicteric. Absent : periorbital swelling, periorbital tenderness Pupils: Present: PERRL - Neck Neck exam general surgery: Present: normal inspection, supple, trachea midline. Absent: tenderness - Respiratory Respiratory exam: Present: CTAB, rhonchi. Absent: accessory muscle use, chest wall tenderness, rales, respiratory distress, wheezes - Cardiovascular Cardiovascular exam: Present: irregular rhythm, +S1, +S2. Absent: diastolic murmur, gallop, rubs, systolic murmur, tachycardia - GI/Abdominal GI/Abdominal exam: Present: normal bowel sounds, soft. Absent: distended, hepatomegaly, tenderness - Extremities Exam Extremities exam: Present: normal capillary refill, normal inspection, warm, radial pulses palpable and symmetrical. Absent: calf tenderness, cyanotic, pedal edema, tenderness - Neurological Exam Neurological exam: Present: alert, oriented X3, no focal deficits. Absent: facial droop, speech deficit - Skin Skin exam: Present: dry, intact, normal color, warm. Absent: rash - Patient Status Disposition: Transfer Inpatient Rehab Fac Condition: Fair Functional capacity at discharge: uses cane/walker Overall status at discharge: patient is progressing back to baseline - Discharge Instructions Follow Up With: Boston Pearson MD [Primary Care Provider] - 03/21/18 10:15 am - Diet and Activity Activity: as per physical therapy Diet: diabetic diet, low fat, low cholesterol, low salt diet
== END 2018-03-13 16:15 | DRG 291 ==
LOC: EMEROO 17:53 → 3BNU 17:53
PROVIDERS: ADMIT Internal Medicine; ATTEND Internal Medicine

== ENCOUNTER 2018-05-15 11:32 | Inpatient (IN) ==
[2018-05-15 12:19] LABS: Basophils % 0.2 %; Eosinophils # 0.1 K/mcL (0.0-0.6); Eosinophils % 1.8 %; Hematocrit 41.5 % (37.5-50.1); Hemoglobin 13.7 g/dL (12.9-16.9); Immature Granulocytes % 0.2 % (0-4); Lymphocytes # 0.7 K/mcL (0.6-4.6); Lymphocytes % 13.3 %; Mean Corpuscular Hemoglobin 31.9 pg (28.0-33.3); Mean Corpuscular Volume 96.5 fL (83.0-100.0); Mean Platelet Volume 9.4 fL (9.4-12.4); Monocytes # 0.5 K/mcL (0.0-1.3); Monocytes % 9.1 %; Neutrophils # 3.8 K/mcL (1.6-8.9); Platelet Count 170 K/mcL (140-400); Red Cell Distribution Width 15.4 % (11.5-14.5); Segmented Neutrophils % 75.4 %
[2018-05-15 12:40] LABS: Calcium 8.9 mg/dL (8.6-10.3); Potassium 4.4 mEq/L (3.5-5.1)
[2018-05-15 12:42] LABS: Troponin I 0.06 ng/mL (< 0.04)
[2018-05-15] MEDS ORDERED: Aspirin 325 MG TABLET PO ONE (12:57)
[2018-05-15] MEDS ORDERED: Furosemide 40 MG/4 ML VIAL IVP ONE (12:57)
[2018-05-15] MEDS ORDERED: *HR* Heparin 5,000 UNIT/ML VIAL IVP PRN ×2 (13:12)
[2018-05-15] MEDS ORDERED: *HR* Heparin 5,000 UNIT/ML VIAL IVP ONE (13:12)
--- NOTE | 2018-05-15 13:15 | Emergency Department Note ---
Disposition Clinical Impression: Elevated troponin Acute exacerbation of CHF (congestive heart failure) Qualifiers: Heart failure type: unspecified Qualified Code(s): I50.9 - Heart failure, unspecified Disposition: Admitted As Inpatient Forms: ED Satisfaction Letter Time of Disposition: 13:15 General Adult HPI - General Chief complaint: ED Shortness of Breath/Dyspnea Stated complaint: NATHANIEL, Lower extremity edema Time Seen by Provider: 05/15/18 12:04 Source: patient Limitations: no limitations Nursing Notes Reviewed: Yes Vital Signs Reviewed: Yes - History of Present Illness HPI Narrative: 87 year old male prsente to the ED with complaints of dyspnea and resolved chest pain with weakness. [place] stats that in march he presented in a smliar way when he had a chf excerbation. He staets that his blood pressure was low today but it is appropaite now. 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 PAtient states that he does feel fluid overloaded at this time. He has some wet crackles in the lungs although is not hypoxic at this time. Histroy of atrial flutter and is rate conrolled at this time. Denies fevers, productive cough, hemopytosis. Pain Scale: 2 - Related Data Home Medications Medication Instructions Recorded Confirmed Alendronate Sodium [Fosamax] 70 mg PO QWEEK 03/08/18 05/15/18 Aspirin [Lo-Dose Aspirin EC] 81 mg PO DAILY 03/08/18 05/15/18 Atorvastatin Calcium [Lipitor] 20 mg PO DAILY 03/08/18 05/15/18 Carbidopa/Levodopa 25/100 [Sinemet 1 tab PO 5XD 03/08/18 05/15/18 25/100] Cyanocobalamin (Vitamin B-12) 1,000 mcg PO DAILY 03/08/18 05/15/18 [Vitamin B12] Ergocalciferol (VITAMIN D2) 50,000 unit PO QWEEK 03/08/18 05/15/18 [Vitamin D2] Furosemide [Lasix] 40 mg PO 1500 03/08/18 05/15/18 Furosemide [Lasix] 80 mg PO QAM 03/08/18 05/15/18 Insulin Aspart Prot/Insuln Asp 12 unit SQ BID 03/08/18 05/15/18 [Novolog Mix 70-30 Vial] Iron Polysaccharide Complex 150 mg PO DAILY 03/08/18 05/15/18 [Ferrex 150] Lactobacillus Acidophilus 1 cap PO DAILY 03/08/18 05/15/18 [Acidophilus] Levothyroxine Sodium [Levoxyl] 88 mcg PO QAM 03/08/18 05/15/18 Metformin HCl [Glucophage] 1,000 mg PO QAM 03/08/18 05/15/18 Metformin HCl [Glucophage] 1,500 mg PO QPM 03/08/18 05/15/18 Metoprolol [Lopressor] 100 mg PO BID 03/08/18 05/15/18 Primidone [Mysoline] 250 mg PO BID 03/08/18 05/15/18 Vitamin E (Dl,Tocopheryl Acet) 1,000 unit PO BID 03/08/18 05/15/18 [Vitamin E] hydroCHLOROthiazide 25 mg PO DAILY 03/08/18 05/15/18 [Hydrochlorothiazide] Alendronate Sodium [Fosamax] 70 mg PO QWEEK 05/15/18 05/15/18 Allergies Allergy/AdvReac Type Severity Reaction Status Date / Time No Known Allergies Allergy Verified 05/15/18 11:37 Constitutional: Reports: weakness. Denies: fever, chills, weight change Eyes: Denies: eye pain, eye discharge, vision change ENT ED: Denies: ear pain, throat pain, dental pain, hearing loss, epistaxis, congestion, dysphagia Cardiovascular: Reports: chest pain, dyspnea on exertion, edema. Denies: palpitations, syncope Respiratory: Denies: cough, dyspnea, wheezes, hemoptysis, stridor Gastrointestinal: Denies: abdominal pain, nausea, vomiting, diarrhea, constipation, hematemesis, melena, hematochezia Genitourinary: Denies: urgency, dysuria, frequency, hematuria Musculoskeletal: Denies: back pain, neck pain, arthralgia, myalgia Integumentary: Denies: rash, abrasion, lesions Neurological: Denies: headache, weakness, numbness, paresthesias, confusion, abnormal gait, vertigo Psychiatric: Denies: anxiety, depression, suicidal thoughts, homicidal thoughts , auditory hallucinations, visual hallucinations Endocrine: Denies: fatigue Hematological/Lymphatic: Denies: easy bleeding, easy bruising Allergic/Immunologic: Denies: facial swelling, urticaria Past Medical History - Past Medical History Medical history: Reports: CHF, diabetes, hyperlipidemia, hypertension, renal disease, thyroid disease, valvular heart disease, other Surgical history: Reports: breast surgery, hip replacement (left), knee replacement (right), other (AV replacement, varicose vein stripping, hemorrhoidectomy) Psychiatric history: Reports: no psych history - Social History Smoking Status: Former smoker Smokeless Tobacco Status: No Alcohol use: Reports: none Drug use: Reports: none Physical Exam - General Limitations: no limitations General appearance: alert, in no apparent distress - Head Head exam: atraumatic, normocephalic, normal inspection - Eye Eye exam: Present: normal appearance, PERRL, EOMI - Expanded Eye Exam Pupils: Bilateral: reactive - ENT ENT exam: normal exam, normal oropharynx, mucous membranes moist - Expanded ENT Exam External ear exam: Present: normal external inspection Mouth exam: Present: normal external inspection Teeth exam: Present: normal inspection Throat exam: Present: normal inspection - Neck Neck exam: Present: normal inspection, full ROM, trachea midline - Chest Chest inspection: Present: normal inspection, symmetric chest wall rise - Expanded Respiratory Exam Location: rales: Right, Upper, Lower, rhonchi: Right, Upper, Lower - Cardiovascular Cardiovascular exam: Present: regular rate, normal rhythm, normal heart sounds - Abdominal Exam Abdominal exam: Present: soft, Non-Tender. Absent: tenderness, distention, guarding, rebound, rigidity - Extremities Exam Extremities exam: Present: normal inspection, full ROM. Absent: tenderness, pedal edema - Expanded Upper Extremity Exam Shoulder exam: Present: normal inspection, full ROM Arm exam: Present: normal inspection, full ROM Elbow exam: Present: normal inspection, full ROM Forearm/Wrist exam: Present: normal inspection, full ROM Hand exam: Present: normal inspection, full ROM Vascular exam: Normal: capillary refill, radial pulse - Expanded Lower Extremity Exam Hip/Pelvis exam: Present: normal inspection, full ROM Upper leg exam: Present: normal inspection, full ROM Knee exam: Present: normal inspection, full ROM Lower leg exam: Present: normal inspection, full ROM, other (pedal edema presents (+) 2 bilaterally) Ankle exam: Present: normal inspection, full ROM Foot/toe exam: Present: normal inspection, full ROM Neurovascular/Tendon exam: Absent: motor deficit, sensory deficit, tendon deficit - Back Exam Back exam: Present: normal inspection, full ROM. Absent: tenderness - Neurological Exam Neurological exam: Present: alert, oriented X3 - Expanded Neurological Exam Patient oriented to: Present: person, place, time Coma Scale Eye Opening: Spontaneous Coma Scale Motor Response: Obeys Commands Coma Scale Verbal Response: Oriented Coma Scale Total: 15 - Psychiatric Psychiatric exam: Present: normal affect, normal mood - Skin Skin exam: Present: warm, dry, intact, normal color Course Course Narrative: we will treat patinet with asa due to new t wave inversions and consult with caridology. lasix therapy for CHF excbeartion. admit to medicine. - Reevaluation(s) Reevaluation #1: patient has been update and is agreeable to admission Time: 14:22 - Consultations Consultation #1: discussed case with Dr. Portillo from cardiology and he does not see any complication for not giving heparin at this time especially if the clinical story is concerning. WE will start heparin at this time and admit to medicine. Time: 13:30 Consultation #2: discussed case with Dr. Salas and she accepts patiet for admission. Time: 14:22 Vital Signs Temperature 98.1 F 05/15/18 11:34 Pulse Rate 65 05/15/18 11:34 Respiratory Rate 18 05/15/18 11:34 Blood Pressure 106/67 05/15/18 11:34 O2 Sat by Pulse Oximetry 95 05/15/18 11:34 Temperature 98.1 F 05/15/18 11:34 Pulse Rate 65 05/15/18 11:34 Respiratory Rate 18 05/15/18 11:34 Blood Pressure 106/67 05/15/18 11:34 O2 Sat by Pulse Oximetry 95 05/15/18 11:34 Oxygen Delivery Oxygen Delivery Room Air Medical Decision Making - Medical Records Medical records reviewed: Yes I reviewed the patient's medical records. - Lab Data Lab results reviewed: Yes I reviewed the patient's lab results. Result diagrams: 05/15/18 12:07 05/15/18 12:07 Lab Results 05/15/18 05/15/18 05/15/18 Range/Units 12:07 12:07 12:07 WBC 5.0 (4.3-11.1) K/mcL RBC 4.30 (4.19-5.50) M/mcL Hgb 13.7 (12.9-16.9) g/dL Hct 41.5 (37.5-50.1) % MCV 96.5 (83.0-100.0) fL MCH 31.9 (28.0-33.3) pg MCHC 33.0 (31.6-35.5) g/dL RDW 15.4 H (11.5-14.5) % Plt Count 170 (140-400) K/mcL MPV 9.4 (9.4-12.4) fL Immature Gran % 0.2 (0-4) % Seg Neutrophils % 75.4 % Lymphocytes % 13.3 % Monocytes % 9.1 % Eosinophils % 1.8 % Basophils % 0.2 % Neutrophils # 3.8 (1.6-8.9) K/mcL Lymphocytes # 0.7 (0.6-4.6) K/mcL Monocytes # 0.5 (0.0-1.3) K/mcL Eosinophils # 0.1 (0.0-0.6) K/mcL Basophils # 0.0 (0.0-0.2) K/mcL PT (9.4-12.1) Seconds INR Heparin Anti-Xa, Unfract (0.30-0.70) IU/mL Sodium 140 (136-145) mEq/L Potassium 4.4 (3.5-5.1) mEq/L Chloride 99 (98-107) mEq/L Carbon Dioxide 28 (23-29) mEq/L BUN 38 H (8-23) mg/dL Creatinine 1.58 H (0.70-1.30) mg/dL Est GFR ( Amer) 51 L (> 60) Est GFR (Non-Af Amer) 42 L (> 60) BUN/Creatinine Ratio 24 (6-26) Glucose 221 H (70-105) mg/dL Calculated Osmolality 306 H (280-300) Lactic Acid 3.2 H (0.5-2.2) mmol/L Calcium 8.9 (8.6-10.3) mg/dL Troponin I 0.06 H* (< 0.04) ng/mL B-Natriuretic Peptide (Less than 100) pg/mL 05/15/18 05/15/18 Range/Units 12:07 12:07 WBC (4.3-11.1) K/mcL RBC (4.19-5.50) M/mcL Hgb (12.9-16.9) g/dL Hct (37.5-50.1) % MCV (83.0-100.0) fL MCH (28.0-33.3) pg MCHC (31.6-35.5) g/dL RDW (11.5-14.5) % Plt Count (140-400) K/mcL MPV (9.4-12.4) fL Immature Gran % (0-4) % Seg Neutrophils % % Lymphocytes % % Monocytes % % Eosinophils % % Basophils % % Neutrophils # (1.6-8.9) K/mcL Lymphocytes # (0.6-4.6) K/mcL Monocytes # (0.0-1.3) K/mcL Eosinophils # (0.0-0.6) K/mcL Basophils # (0.0-0.2) K/mcL PT 12.7 H (9.4-12.1) Seconds INR 1.1 Heparin Anti-Xa, Unfract 0.05 L (0.30-0.70) IU/mL Sodium (136-145) mEq/L Potassium (3.5-5.1) mEq/L Chloride (98-107) mEq/L Carbon Dioxide (23-29) mEq/L BUN (8-23) mg/dL Creatinine (0.70-1.30) mg/dL Est GFR ( Amer) (> 60) Est GFR (Non-Af Amer) (> 60) BUN/Creatinine Ratio (6-26) Glucose (70-105) mg/dL Calculated Osmolality (280-300) Lactic Acid (0.5-2.2) mmol/L Calcium (8.6-10.3) mg/dL Troponin I (< 0.04) ng/mL B-Natriuretic Peptide 666 H (Less than 100) pg/mL - Radiology Data Radiology results reviewed: Yes I reviewed the patient's radiology results. - EKG Data EKG #1 EKG attestation: Yes I reviewed and interpreted this EKG. EKG results narrative: atrial flutter with rate of 64. NO STEMI. there are new T wave inversions in V2- 5 not presents on 03/08/18. 1142
[2018-05-15] MEDS ORDERED: Piperacillin/Tazobactam 3.375 GM in 0.9 % Sodium Chloride Mini Bag 100 ML IVPB ONE (13:25)
[2018-05-15 13:31] LABS: INR 1.1; Prothrombin Time 12.7 Seconds (9.4-12.1)
[2018-05-15 13:32] LABS: Heparin anti-factor XA UFH 0.05 IU/mL (0.30-0.70)
[2018-05-15] MEDS: Heparin 25,000 UNIT/500 ML D5W 25,000 UNIT/500 ML BAG IVC SCH (13:51)
--- NOTE | 2018-05-15 14:56 | Electrocardiograph Report ---
[facility] 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
--- NOTE | 2018-05-15 17:22 | Internal Med History&Physical ---
Date of Encounter: 05/15/18 Time of Encounter: 17:22 Internal Medicine - H&P: HPI Chief complaint: Dyspnea and progressive worsening of lower extremity edema History of present illness: Mr. Lux is a 87 year old male prsente to the ED with complaints progressive worsening of dyspnea associated with progressive worsening of lower extremity edema . He also complained of a typical chest pain . When evaluated at the ER it was noted that he was hypotensive . Using the records revealed history of. atrial flutter and is rate conrolled at this time. Denies fevers, productive cough, hemopytosis. He was admitted for further evaluation and management of congestive heart failure exacerbation. Past Med Surg Social Fam HX - Past Medical History Medical history: CHF, diabetes, hyperlipidemia, hypertension, renal disease, thyroid disease, valvular heart disease, other Additional medical history: Parkinson's Psychiatric history: no psych history - Past Surgical History Surgical History: breast surgery, hip replacement (left), knee replacement ( right), other (AV replacement, varicose vein stripping, hemorrhoidectomy) Additional surgical history: lump removed from breast, hemorrhoid sx, aortic valve replacement, R knee replacement, L hip replacement - Social History Smoking Status: Former smoker Smokeless Tobacco Status: No Alcohol use: none Drug use: none - Family History Mother Living Status: Hx Family Cardiac Disorders: Yes (CVA, CHF, venous stasis) Hx Family Neurologic Disorders: Yes (Alzheimers) Father Living Status: Hx Family Cardiac Disorders: Yes ([place]) Hx Family Endocrine Disorder: Yes (DM) Internal Medicine - H&P: Meds Alendronate Sodium [Fosamax] 70 mg PO QWEEK 03/08/18 [History] Aspirin [Lo-Dose Aspirin EC] 81 mg PO DAILY 03/08/18 [History] Atorvastatin Calcium [Lipitor] 20 mg PO DAILY 03/08/18 [History] Carbidopa/Levodopa 25/100 [Sinemet 25/100] 1 tab PO 5XD 03/08/18 [History] Cyanocobalamin (Vitamin B-12) [Vitamin B12] 1,000 mcg PO DAILY 03/08/18 [History ] Ergocalciferol (VITAMIN D2) [Vitamin D2] 50,000 unit PO QWEEK 03/08/18 [History] Furosemide [Lasix] 40 mg PO 1500 03/08/18 [History] Furosemide [Lasix] 80 mg PO QAM 03/08/18 [History] Insulin Aspart Prot/Insuln Asp [Novolog Mix 70-30 Vial] 12 unit SQ BID 03/08/18 [History] Iron Polysaccharide Complex [Ferrex 150] 150 mg PO DAILY 03/08/18 [History] Lactobacillus Acidophilus [Acidophilus] 1 cap PO DAILY 03/08/18 [History] Levothyroxine Sodium [Levoxyl] 88 mcg PO QAM 03/08/18 [History] Metformin HCl [Glucophage] 1,000 mg PO QAM 03/08/18 [History] Metformin HCl [Glucophage] 1,500 mg PO QPM 03/08/18 [History] Metoprolol [Lopressor] 100 mg PO BID 03/08/18 [History] Primidone [Mysoline] 250 mg PO BID 03/08/18 [History] Vitamin E (Dl,Tocopheryl Acet) [Vitamin E] 1,000 unit PO BID 03/08/18 [History] hydroCHLOROthiazide [Hydrochlorothiazide] 25 mg PO DAILY 03/08/18 [History] Alendronate Sodium [Fosamax] 70 mg PO QWEEK 05/15/18 [History] 3 Allergy/AdvReac Type Severity Reaction Status Date / Time No Known Allergies Allergy Verified 05/15/18 11:37 All Systems PM: A 10-system review of systems was performed and is negative for pertinent findings except as documented above in the HPI. - Constitutional Vitals: Temp Pulse Resp BP Pulse Ox 98.4 F 99 18 145/84 98 05/15/18 17:01 05/15/18 17:01 05/15/18 17:01 05/15/18 17:01 05/15/18 17:01 General appearance: Present: A&O X 3 - Head Head exam: Present: atraumatic, normocephalic - Neck Neck exam general surgery: Present: supple, trachea midline. Absent: lymphadenopathy - Respiratory Respiratory exam: Present: CTAB. Absent: accessory muscle use, rales, rhonchi, wheezes - Cardiovascular Cardiovascular exam: Present: +S1, +S2. Absent: diastolic murmur, gallop, rubs , systolic murmur - GI/Abdominal GI/Abdominal exam: Present: normal bowel sounds, soft, no peritoneal signs. Absent: distended, tenderness - Extremities Exam Extremities exam: Present: pedal edema, warm, radial pulses palpable and symmetrical. Absent: calf tenderness, cyanotic Internal Med - H&P Results - Labs CBC & Chem 7: 05/16/18 08:51 05/16/18 08:51 - Assessment and plan (1) Elevated troponin Current Visit: Yes Status: Acute Assessment and plan: The patient has no ischemic changes on his EKG, now chest pain-free, elevated troponin might be related to his chronic kidney disease, trend cardiac enzymes and repeat EKG in a.m. (2) Acute exacerbation of CHF (congestive heart failure) Current Visit: Yes Status: Acute Assessment and plan: - SOB due to *CHF exacerbation due to R/O ischemia Noncompliance URTI PLAN: - CPP x 1 more, 8 hr after the 1st one - EKG in AM - ASA - O2 to keep SpO2 > 92% - Lasix 40 mg IV BID - Aerosols UD q 4 hr - 2D Echo - CBCD, BMP in AM - Fasting lipids - Tylenol 650 mg PO q 4-6 hr PRN pain Qualifiers: Heart failure type: unspecified Qualified Code(s): I50.9 - Heart failure, unspecified (3) Hypothyroidism Current Visit: No Status: Chronic Qualifiers: Hypothyroidism type: unspecified Qualified Code(s): E03.9 - Hypothyroidism , unspecified (4) Diabetes mellitus Current Visit: No Status: Chronic Qualifiers: Diabetes mellitus type: type 2 Diabetes mellitus assisted insulin use: with project facilitator use Diabetes mellitus complication status: with kidney complications Diabetes mellitus complication detail: with chronic kidney disease Chronic kidney disease stage: stage 3 (moderate) Qualified Code(s): E11.22 - Type 2 diabetes mellitus with diabetic chronic kidney disease; N18.3 - Chronic kidney disease, stage 3 (moderate); 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 Qualifiers: Atrial flutter type: unspecified Qualified Code(s): I48.92 - Unspecified atrial flutter - Time Spent With Patient Total time spent is greater than 50% in coordination of care (as documented) at patient's floor/unit and/or counseling patient:
[2018-05-15] MEDS ORDERED: NON-FORMULARY MEDICATION 1 EACH EACH (Alendronate Sodium [Fosamax] 70 MG) PO SCH ×2 (17:30)
[2018-05-15] MEDS ORDERED: *HR* Dextrose 50 % in Water (Syg) 50 ML SYRINGE IVP PRN (17:30)
[2018-05-15] MEDS ORDERED: D5% in Water 1,000 ML IVC PRN (17:30)
[2018-05-15] MEDS ORDERED: Dextrose Gel 15 GM/37.5 ML TUBE PO PRN ×2 (17:30)
[2018-05-15] MEDS: Metoprolol 100 MG TABLET PO SCH (20:51)
[2018-05-15] MEDS: Carbidopa/Levodopa 25/100 TABLET PO SCH (20:52)
[2018-05-15] MEDS: Insulin LISPRO 300 UNITS/3 ML VIAL SQ SCH (20:58)
[2018-05-15] MEDS: Insulin NPH/REG 70/30 100 UNIT/ML (x5UNIT) SQ SCH (21:26)
[2018-05-16] MEDS: Carbidopa/Levodopa 25/100 TABLET PO SCH ×5 (00:23→21:28)
[2018-05-16] MEDS ORDERED: Naloxone 0.4 MG/ML INJ IVP PRN (07:54)
[2018-05-16] MEDS ORDERED: Furosemide 40 MG TABLET PO SCH (09:00)
[2018-05-16] MEDS ORDERED: Aspirin Enteric Coated 81 MG Tablet PO SCH (09:00)
[2018-05-16 09:01] LABS: Hemoglobin 14.4 g/dL (12.9-16.9); Mean Corpuscular HGB Conc 32.7 g/dL (31.6-35.5); Mean Corpuscular Hemoglobin 31.6 pg (28.0-33.3); Mean Corpuscular Volume 96.7 fL (83.0-100.0); Mean Platelet Volume 9.5 fL (9.4-12.4); Platelet Count 171 K/mcL (140-400); Red Blood Count 4.55 M/mcL (4.19-5.50); Red Cell Distribution Width 15.6 % (11.5-14.5)
[2018-05-16 09:10] LABS: INR 1.1; Prothrombin Time 12.6 Seconds (9.4-12.1)
[2018-05-16 09:12] LABS: Activated Partial Thrombo Time 30.4 Seconds (26.0-36.0)
[2018-05-16 09:19] LABS: Albumin 3.8 g/dL (3.5-5.7); Albumin/Globulin Ratio 1.5 (1.1-2.2); Bilirubin,Total 0.5 mg/dL (0.3-1.0); Calcium 8.8 mg/dL (8.6-10.3); Chol/HDL Ratio 2.6 (0-4.9); Globulin 2.6 g/dL (2.4-3.5); Phosphorous 3.9 mg/dL (2.7-4.5); Potassium 4.3 mEq/L (3.5-5.1); Total Protein 6.4 g/dL (6.4-8.9)
[2018-05-16] MEDS: Furosemide 40 MG/4 ML VIAL IVP SCH ×2 (10:14→18:02)
[2018-05-16] MEDS: Insulin NPH/REG 70/30 100 UNIT/ML (x5UNIT) SQ SCH ×2 (10:15→21:27)
[2018-05-16] MEDS: Lactobacillus 1 EACH CAP.SPRINK PO SCH (10:15)
[2018-05-16] MEDS: Iron Polysaccharide Complex 150 MG CAPSULE PO SCH (10:15)
[2018-05-16] MEDS: Cyanocobalamin (B-12) 1,000 MCG TABLET PO SCH (10:15)
[2018-05-16] MEDS: Metoprolol 100 MG TABLET PO SCH ×2 (10:15→21:28)
[2018-05-16] MEDS: Insulin LISPRO 300 UNITS/3 ML VIAL SQ SCH ×4 (10:30→21:25)
[2018-05-16 11:03] LABS: Troponin I 0.05 ng/mL (< 0.04)
--- NOTE | 2018-05-16 11:14 | Cardiology Consult Note ---
<Andressa Galvan Keren - Last Filed: 05/16/18 11:16> Date of Encounter: 05/16/18 Time of Encounter: 10:40 Assessment and Plan (1) Congestive heart failure Current Visit: No Status: Chronic Acute on chronic diastolic CHF; suspect may be secondary to dietary indiscretion at home. Reports increasing weights/LE/dyspnea over the past several weeks. BNP 666, similar to previous admission. CXR shows stable exam, with bibasilar opacities, right worse than left compatible with bilateral pleural effusions and associated bibasilar atelectasis or infiltrates Recent TTE shows preserved LVEF with normal functioning bioprosthetic AV valve. Continue IV diuresis. Monitor kidney function closely given hx of CKD. Strict I&O's, daily weights, Na/fluid restriction diet. TTE ordered by primary service, results pending. Add NINO michelle. Emphasis placed on CHF teaching with patient and family. Qualifiers: Heart failure type: diastolic Heart failure chronicity: acute on chronic Qualified Code(s): I50.33 - Acute on chronic diastolic (congestive) heart failure (2) Atrial flutter Current Visit: Yes Status: Acute Hx of atrial flutter, rate controlled on currently medical therapy. 12 hour tele: avg HR=67. No significant pause. Has not been on AC due to frequent falls and anemia. Of note significant hematuria noted today s/p do insertion. Consider Urology consult. Continue asa only; patient/family aware of increased risk for CVA. Qualifiers: Atrial flutter type: unspecified Qualified Code(s): I48.92 - Unspecified atrial flutter (3) Elevated troponin Current Visit: No Status: Resolved Troponin 0.06, 0.05 in the setting of CHF exacerbation and CKD. Doubt ACS. [facility] 2011--mild, non-obstructive CAD. No further testing recommended as inpatient. (4) Aortic valve replaced Current Visit: No Status: Chronic Hx of bioprosthestic valve replacement in 1998 at [facility]. Most recent TTE (March 2018) demonstrated preserved LVEF with normal functioning AV valve. Discussion w patient/family: The assessment and plan as outlined above was discussed with the patient and/or family members who expressed understanding and agreement. All questions were answered. Thank you for involving us in the care of your patient. Please call with any questions. The patient will be discussed and reviewed with Dr. Portillo; changes to be made accordingly. History of Present Illness Consult date: 05/16/18 Requesting physician: Lisa Salas Consult reason: Elevated troponin, CHF Chief complaint: Fluid on lungs History of present illness: Mr. Lux is a 87 year old male with PMHx significant of dCHF, hx of AVR ( bioprosthetic), DMII, HTN, Parkinson's disease, HLD, and atrial flutter who presented to the ED with complaints of worsening shortness of breath and lower extremity edema. He reports symptoms have been ongoing for the past 1-2 weeks. Recent hospitalization, March 2018, with similar presentation. Patient reports lost ~20 lbs during last hospitalization however since discharge fluid has been building back up. Baseline dry weight ~200-203 lbs. He reports po intake ~40 onces per day. Does not necessarily follow low Na diet however does not add salt. Lasix recently increased in the outpatient setting to 80 mg BID, however was then decreased to 80 mg in AM, 40 mg PM d/t declining renal function. Past Med Surg Social Fam HX - Past Medical History Attestation: Yes The following information was validated with the patient. Source: patient, old records reviewed Medical history: CHF, diabetes, hyperlipidemia, hypertension, renal disease, thyroid disease, valvular heart disease, other Additional medical history: Parkinson's Psychiatric history: no psych history - Past Surgical History Surgical History: breast surgery, hip replacement (left), knee replacement ( right), other (AV replacement, varicose vein stripping, hemorrhoidectomy) Additional surgical history: lump removed from breast, hemorrhoid sx, aortic valve replacement, R knee replacement, L hip replacement - Social History Smoking Status: Former smoker Smokeless Tobacco Status: No Alcohol use: none Drug use: none - Family History Mother Living Status: Hx Family Cardiac Disorders: Yes (CVA, CHF, venous stasis) Hx Family Neurologic Disorders: Yes (Alzheimers) Father Living Status: Hx Family Cardiac Disorders: Yes (NC) Hx Family Endocrine Disorder: Yes (DM) Medications and Allergies Alendronate Sodium [Fosamax] 70 mg PO QWEEK 03/08/18 [History] Aspirin [Lo-Dose Aspirin EC] 81 mg PO DAILY 03/08/18 [History] Atorvastatin Calcium [Lipitor] 20 mg PO DAILY 03/08/18 [History] Carbidopa/Levodopa 25/100 [Sinemet 25/100] 1 tab PO 5XD 03/08/18 [History] Cyanocobalamin (Vitamin B-12) [Vitamin B12] 1,000 mcg PO DAILY 03/08/18 [History ] Ergocalciferol (VITAMIN D2) [Vitamin D2] 50,000 unit PO QWEEK 03/08/18 [History] Furosemide [Lasix] 40 mg PO 1500 03/08/18 [History] Furosemide [Lasix] 80 mg PO QAM 03/08/18 [History] Insulin Aspart Prot/Insuln Asp [Novolog Mix 70-30 Vial] 12 unit SQ BID 03/08/18 [History] Iron Polysaccharide Complex [Ferrex 150] 150 mg PO DAILY 03/08/18 [History] Lactobacillus Acidophilus [Acidophilus] 1 cap PO DAILY 03/08/18 [History] Levothyroxine Sodium [Levoxyl] 88 mcg PO QAM 03/08/18 [History] Metformin HCl [Glucophage] 1,000 mg PO QAM 03/08/18 [History] Metformin HCl [Glucophage] 1,500 mg PO QPM 03/08/18 [History] Metoprolol [Lopressor] 100 mg PO BID 03/08/18 [History] Primidone [Mysoline] 250 mg PO BID 03/08/18 [History] Vitamin E (Dl,Tocopheryl Acet) [Vitamin E] 1,000 unit PO BID 03/08/18 [History] hydroCHLOROthiazide [Hydrochlorothiazide] 25 mg PO DAILY 03/08/18 [History] Alendronate Sodium [Fosamax] 70 mg PO QWEEK 05/15/18 [History] 3 Allergy/AdvReac Type Severity Reaction Status Date / Time No Known Allergies Allergy Verified 05/15/18 11:37 All Systems Review: The remainder of the systems were reviewed and are negative - Cardiovascular Cardiovascular: as per HPI Physical Examination Vital Signs, Last 4 Hours Temp Pulse Resp BP Pulse Ox 05/16/18 08:08 97.9 F 68 18 119/84 92 General: Conversant, No Apparent Distress HEENT: Atraumatic, Normocephaly, Mucus Membranes Moist Cardiac: Other (irregular rate and rhythm) Lungs: Other (Rales throughout) Neuro: Alert and responsive Abdomen: Soft Skin: No rashes noted on visualized skin Musculoskeletal: No Chest Wall Tenderness Extremities: Other (bilateral lower extremity edema, +1-2) Results 05/16/18 08:51 05/16/18 08:51 Lab Results 05/16/18 05/16/18 05/16/18 08:51 08:51 08:51 WBC 5.7 Hgb 14.4 Hct 44.0 Plt Count 171 INR 1.1 APTT 30.4 Sodium 139 Potassium 4.3 Chloride 100 Carbon Dioxide 31 H BUN 33 H Creatinine 1.39 H Glucose 132 H Calcium 8.8 Total Bilirubin 0.5 AST 13 ALT 4 L Alkaline Phosphatase 158 H Troponin I 0.05 H* B-Natriuretic Peptide 05/16/18 08:51 WBC Hgb Hct Plt Count INR APTT Sodium Potassium Chloride Carbon Dioxide BUN Creatinine Glucose Calcium Total Bilirubin AST ALT Alkaline Phosphatase Troponin I B-Natriuretic Peptide 511 H Active Medications Aspirin (Aspirin Ec) 81 mg PO DAILY [facility] Stop: 11/15/18 09:01 Last Admin: 05/16/18 10:14 Dose: 81 mg Atorvastatin Calcium (Lipitor) 20 mg PO HS [facility] Stop: 11/15/18 21:01 Carbidopa/Levodopa (Sinemet) 1 each PO 5XD [facility] Stop: 11/14/18 20:01 Last Admin: 05/16/18 10:15 Dose: 1 each Cyanocobalamin (Vitamin B12) 1,000 mcg PO DAILY [facility] Stop: 11/15/18 09:01 Last Admin: 05/16/18 10:15 Dose: 1,000 mcg Dextrose/Water (Dextrose 50% (Syg)) 25 ml IVP AD PRN PRN Reason: Hypoglycemia Stop: 11/14/18 17:31 Ergocalciferol (Drisdol (50,000 Unit)) 50,000 unit PO QWEEK [facility] Stop: 11/14/18 17:31 Last Admin: 05/15/18 20:49 Dose: Not Given Furosemide (Lasix) 40 mg IVP BIDDIURETIC [place] Stop: 11/15/18 09:01 Last Admin: 05/16/18 10:14 Dose: 40 mg Glucagon (Glucagen) 1 mg IM ONCE PRN PRN Reason: Hypoglycemia Stop: 11/14/18 17:31 Glucose (Gluctose) 15 gm PO ONCE PRN PRN Reason: Hypoglycemia Stop: 11/14/18 17:31 Glucose (Gluctose) 30 gm PO ONCE PRN PRN Reason: Hypoglycemia Stop: 11/14/18 17:31 Heparin Sodium (Porcine) (Heparin) 4,000 unit IVP Q6HR PRN PRN Reason: SEE COMMENTS Stop: 11/14/18 13:13 Heparin Sodium (Porcine) (Heparin) 2,000 unit IVP Q6H PRN PRN Reason: SEE COMMENTS Stop: 11/14/18 13:13 Heparin Sodium/Dextrose (Heparin 25,000 Unit/500 Ml D5w) 25,000 unit in 500 mls @ 20.357 mls/hr IVC .Q24H [facility]; 11 UNIT/KG/HR PRN Reason: Protocol Stop: 11/14/18 13:16 Last Titration: 05/15/18 15:26 Dose: Infused Dextrose (Dextrose 5%) 1,000 mls @ 100 mls/hr IVC .Q10H PRN PRN Reason: HYPOGLYCEMIA Stop: 11/14/18 17:31 Insulin Human Lispro (Humalog) 0 units SQ HS [place] PRN Reason: Protocol Stop: 11/14/18 21:01 Last Admin: 05/15/18 20:58 Dose: 4 units Insulin Human Lispro (Humalog) 0 units SQ TIDAC [place] PRN Reason: Protocol Stop: 11/15/18 07:31 Last Admin: 05/16/18 10:30 Dose: Not Given Insulin Isophane/Insulin Regular (Humulin 70/30 Vial) 12 unit SQ BID [facility] Stop: 11/14/18 21:01 Last Admin: 05/16/18 10:15 Dose: 12 unit Lactobacillus Acidophilus/Rhamnosus (Culturelle) 1 each PO DAILY [facility] Stop: 11/15/18 09:01 Last Admin: 05/16/18 10:15 Dose: 1 each Levothyroxine Sodium (Synthroid) 88 mcg PO 0630 [facility] Stop: 11/15/18 06:31 Last Admin: 05/16/18 06:35 Dose: 88 mcg Metoprolol Tartrate (Lopressor) 100 mg PO BID [facility] Stop: 11/14/18 21:01 Last Admin: 05/16/18 10:15 Dose: 100 mg Naloxone HCl (Narcan) 0.4 mg IVP Q2MIN PRN PRN Reason: SEE COMMENTS Stop: 11/15/18 07:55 Polysaccharide Iron Complex (Ferrex 150) 150 mg PO 1000 [facility] Stop: 11/15/18 10:01 Last Admin: 05/16/18 10:15 Dose: 150 mg Primidone (Mysoline) 250 mg PO BID [facility] Stop: 11/14/18 21:01 Last Admin: 05/16/18 10:15 Dose: 250 mg Vitamin E (Vitamin E) 200 unit PO BID [facility] Stop: 11/14/18 21:01 Last Admin: 05/16/18 10:18 Dose: 200 unit - Imaging and Cardiology Echo: report reviewed Cardiac cath: report reviewed Other Results: 12 hour tele: avg HR=67 atrial flutter. No pause - EKG Interpretation EKG results cardiology: personally reviewed Consult Discharge Plan - Plan Additional Instructions: Please call to make follow up outpatient appointment with [facility] within 2 weeks of discharge. Referrals: Rick Frederick MD [Partnered Physician] - Boston Pearson MD [Primary Care Provider] - 05/24/18 10:15 am <Kosta Portillo - Last Filed: 05/17/18 13:27> Date of Encounter: 05/17/18 - Attending Attestation I have personally performed a face to face evaluation on this patient. I have reviewed and agree with the care plan. History and Exam by me shows: 87 YOM s/p bioprosthetic AV with recent preserved EF and well functioning AV Currently euvolemic and denies any symptoms Continue medical management Likely dietary indiscretions Assessment and Plan Discussion w patient/family: The assessment and plan as outlined above was discussed with the patient and/or family members who expressed understanding and agreement. All questions were answered. Thank you for involving us in the care of your patient. Please call with any questions. History of Present Illness History of present illness: Mr. Lux is a 87 year old male All Systems Review: The remainder of the systems were reviewed and are negative Physical Examination Vital Signs, Last 4 Hours Temp Pulse Resp BP Pulse Ox 05/17/18 10:52 97.7 F 66 16 100/62 92 Results 05/17/18 10:37 05/17/18 10:37 Lab Results 05/17/18 05/17/18 10:37 10:37 WBC 5.8 Hgb 13.6 Hct 42.3 Plt Count 162 Sodium 138 Potassium 4.7 Chloride 98 Carbon Dioxide 36 H BUN 32 H Creatinine 1.47 H Glucose 228 H Calcium 9.2
[2018-05-16 16:36] LABS: Bilirubin,Urine Negative (Negative); Blood,Urine Large (Negative); Clarity,Urine Cloudy (Clear); Color,Urine Red (Yellow); Glucose,Urine (UA) Normal (Normal); Ketones,Urine Trace mg/dL (Negative); Leukocyte Esterase,Urine Small (Negative); Nitrite,Urine Negative (Negative); PH,Urine 7.5 pH Units (5.0-8.0); Protein,Urine 30 mg/dL (Neg-Trace); Specific Gravity,Urine 1.012 (1.010-1.025); Urobilinogen,Urine Normal (Normal)
[2018-05-16 16:40] LABS: Bacteria,Urine None Seen per hpf (None-Few); Hyaline Casts,Urine None Seen per lpf (None-Few); RBC,Urine TNTC per hpf (0-3); Squamous Epithelial Cell,Urine None Seen per lpf (None-Few)
[2018-05-16] MEDS ORDERED: *HR* Heparin 5,000 UNIT/ML VIAL SQ SCH (18:00)
--- NOTE | 2018-05-16 18:49 | Internal Med Progress Note ---
Date of Encounter: 05/16/18 Time of Encounter: 18:46 - Assessment and plan (1) Elevated troponin Current Visit: No Status: Resolved Assessment and plan: The patient has no ischemic changes on his EKG, now chest pain-free, elevated troponin might be related to his chronic kidney disease, trend cardiac enzymes and repeat EKG in a.m. 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: with superintendent marine [employer] use Diabetes mellitus complication status: with kidney complications Diabetes mellitus complication detail: with chronic kidney disease Chronic kidney disease stage: stage 3 (moderate) Qualified Code(s): E11.22 - Type 2 diabetes mellitus with diabetic chronic kidney disease; N18.3 - Chronic kidney disease, stage 3 (moderate); Z79.4 - terminal superintendent (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 of insulin (4) CKD (chronic kidney disease), stage III Current Visit: No Status: Chronic Assessment and plan: Monitor renal function daily while on Lasix (5) Hypothyroidism Current Visit: No Status: Chronic Qualifiers: Hypothyroidism type: unspecified Qualified Code(s): E03.9 - Hypothyroidism , unspecified (6) Falls frequently Current Visit: No Status: Chronic Assessment and plan: precaution for fall (7) Acute exacerbation of CHF (congestive heart failure) Current Visit: Yes Status: Acute Assessment and plan: Acute on chronic diastolic CHF; possibly secondary to dietary indiscretion at home. Reports increasing weights/LE/dyspnea over the past several weeks. BNP 666, similar to previous admission. - O2 to keep SpO2 > 92% - Lasix 40 mg IV BID - 2D Echo - CBCD, BMP in AM - Fasting lipids - Tylenol 650 mg PO q 4-6 hr PRN pain Qualifiers: Heart failure type: unspecified Qualified Code(s): I50.9 - Heart failure, unspecified (8) Atrial flutter Current Visit: Yes Status: Acute Assessment and plan: Hx of atrial flutter, rate controlled on currently medical therapy. Cardiology aware Qualifiers: Atrial flutter type: unspecified Qualified Code(s): I48.92 - Unspecified atrial flutter (9) Hematuria Current Visit: Yes Status: Acute Assessment and plan: possibly due to traumatic do insertion. ? BPH. Will consult urology and hold off on flomax for now. Qualifiers: Qualified Code(s): R31.9 - Hematuria, unspecified (10) Aortic valve replaced Current Visit: No Status: Chronic Assessment and plan: Hx of bioprosthestic valve replacement in 1998 at [facility]. Most recent TTE (March 2018) demonstrated preserved LVEF with normal functioning AV valve. - Time Spent With Patient Total time spent is greater than 50% in coordination of care (as documented) at patient's floor/unit and/or counseling patient: less than 15 minutes - Subjective Interval history: Pt states he frequently urinates at night and he feels as though he does not completely empty his bladder. Daughter at bedside concerned he may have an enlarged prostate. Pt requested cath placement. He states SOB slowly improving. He denies CP. Some hematuria following do placement but denies dysuria or urgency. Denies fever, chills, N/V or diarrhea. - Constitutional Vitals: Temp Pulse Resp BP Pulse Ox 97.8 F 67 18 138/80 95 05/16/18 15:46 05/16/18 15:46 05/16/18 15:46 05/16/18 15:46 05/16/18 15:46 General appearance: Present: A&O X 3 - Head Head exam: Present: atraumatic, normocephalic - Eye Eye exam: Present: PERRL, conjuntiva pink, sclera anicteric Pupils: Present: PERRL - Neck Neck exam general surgery: Present: supple, trachea midline. Absent: lymphadenopathy - Respiratory Respiratory exam: Present: CTAB. Absent: accessory muscle use, rales, rhonchi, wheezes - Cardiovascular Cardiovascular exam: Present: RRR, +S1, +S2, systolic murmur. Absent: diastolic murmur, gallop, rubs - GI/Abdominal GI/Abdominal exam: Present: normal bowel sounds, soft, no peritoneal signs. Absent: distended, tenderness - Extremities Exam Extremities exam: Present: warm, radial pulses palpable and symmetrical. Absent : calf tenderness, cyanotic, pedal edema - Neurological Exam Neurological exam: Present: CN II-XII intact, oriented X3, no focal deficits. Absent: pronater drift, facial droop, speech deficit - Skin Skin exam: Present: dry, intact Internal Medicine: Result - Labs CBC & Chem 7: 05/16/18 08:51 05/16/18 08:51 - ABG Interpretation ABG results: PT/INR, D-dimer PT 12.6 Seconds (9.4-12.1) H 05/16/18 08:51 Consult Discharge Plan - Plan Referrals: Boston Pearson MD [Primary Care Provider] -
--- NOTE | 2018-05-16 20:24 | Event Note ---
Date of Encounter: 05/16/18 Time of Encounter: 20:24 holding anitcoagulation bc of hematuria. will reassess in AM and provide formal consult note
[2018-05-17] MEDS: Carbidopa/Levodopa 25/100 TABLET PO SCH ×5 (00:45→20:06)
[2018-05-17] MEDS: Insulin LISPRO 300 UNITS/3 ML VIAL SQ SCH ×4 (08:40→21:56)
[2018-05-17] MEDS: Furosemide 40 MG/4 ML VIAL IVP SCH ×2 (08:50→16:54)
[2018-05-17] MEDS: Lactobacillus 1 EACH CAP.SPRINK PO SCH (08:51)
[2018-05-17] MEDS: Iron Polysaccharide Complex 150 MG CAPSULE PO SCH (08:51)
[2018-05-17] MEDS: Cyanocobalamin (B-12) 1,000 MCG TABLET PO SCH (08:51)
[2018-05-17] MEDS: Metoprolol 100 MG TABLET PO SCH ×2 (08:51→20:06)
--- NOTE | 2018-05-17 09:09 | Urology - Consult Note ---
<Leslie Chun N - Last Filed: 05/17/18 09:04> Date of Encounter: 05/17/18 Time of Encounter: 09:04 - Assessment and Plan (1) Hematuria Current Visit: Yes Status: Acute Assessment and plan: Patient is an 87-year-old male who presents with gross hematuria after Do placement. I discussed with the patient and his family member that this is likely due to traumatic catheter placement and prostatic hypertrophy. I encouraged the patient to follow up after he is discharged in the office to discuss PSA testing, evaluating his prostate, and discussing alternatives to improve his daily urinary symptoms. For now, we will continue to hold anticoagulation until urine improves. Qualifiers: Hematuria type: gross Qualified Code(s): R31.0 - Gross hematuria Urology CN:DARON Consult date: 05/17/18 Reason for consult Urology: Gross Hematuria History of present illness: Patient is an 87-year-old male who presented to the emergency department with complaints of dyspnea, resolving chest pain and weakness. Patient states he felt similar to when he had a CHF exacerbation previously. Patient was admitted to the hospitalist service at which time they noticed gross blood in the indwelling Do. The patient takes aspirin daily and was placed on heparin. The patient states he experiences daily symptoms of urinary urgency, urge incontinence, weak urinary stream, an overactive bladder. Patient denies ever seeing any blood in his urine. The patient follows regularly with nephrology, but he does not have a urologist. The patient is unsure if he has had a PSA drawn in the last year. The patient denies any known personal history of kidney, bladder, or prostate issues. The patient states he has two nephews with prostate cancer. Past Med Surg Social Fam HX - Past Medical History Medical history: CHF, diabetes, hyperlipidemia, hypertension, renal disease, thyroid disease, valvular heart disease, other Additional medical history: Parkinson's Psychiatric history: no psych history - Past Surgical History Surgical History: breast surgery, hip replacement (left), knee replacement ( right), other (AV replacement, varicose vein stripping, hemorrhoidectomy) Additional surgical history: lump removed from breast, hemorrhoid sx, aortic valve replacement, R knee replacement, L hip replacement - Social History Smoking Status: Former smoker Smokeless Tobacco Status: No Alcohol use: none Drug use: none - Family History Mother Living Status: Hx Family Cardiac Disorders: Yes (CVA, CHF, venous stasis) Hx Family Neurologic Disorders: Yes (Alzheimers) Father Living Status: Hx Family Cardiac Disorders: Yes (IA) Hx Family Endocrine Disorder: Yes (DM) Medications and Allergies Alendronate Sodium [Fosamax] 70 mg PO QWEEK 03/08/18 [History] Aspirin [Lo-Dose Aspirin EC] 81 mg PO DAILY 03/08/18 [History] Atorvastatin Calcium [Lipitor] 20 mg PO DAILY 03/08/18 [History] Carbidopa/Levodopa 25/100 [Sinemet 25/100] 1 tab PO 5XD 03/08/18 [History] Cyanocobalamin (Vitamin B-12) [Vitamin B12] 1,000 mcg PO DAILY 03/08/18 [History ] Ergocalciferol (VITAMIN D2) [Vitamin D2] 50,000 unit PO QWEEK 03/08/18 [History] Furosemide [Lasix] 40 mg PO 1500 03/08/18 [History] Furosemide [Lasix] 80 mg PO QAM 03/08/18 [History] Insulin Aspart Prot/Insuln Asp [Novolog Mix 70-30 Vial] 12 unit SQ BID 03/08/18 [History] Iron Polysaccharide Complex [Ferrex 150] 150 mg PO DAILY 03/08/18 [History] Lactobacillus Acidophilus [Acidophilus] 1 cap PO DAILY 03/08/18 [History] Levothyroxine Sodium [Levoxyl] 88 mcg PO QAM 03/08/18 [History] Metformin HCl [Glucophage] 1,000 mg PO QAM 03/08/18 [History] Metformin HCl [Glucophage] 1,500 mg PO QPM 03/08/18 [History] Metoprolol [Lopressor] 100 mg PO BID 03/08/18 [History] Primidone [Mysoline] 250 mg PO BID 03/08/18 [History] Vitamin E (Dl,Tocopheryl Acet) [Vitamin E] 1,000 unit PO BID 03/08/18 [History] hydroCHLOROthiazide [Hydrochlorothiazide] 25 mg PO DAILY 03/08/18 [History] Alendronate Sodium [Fosamax] 70 mg PO QWEEK 05/15/18 [History] 3 Allergy/AdvReac Type Severity Reaction Status Date / Time No Known Allergies Allergy Verified 05/15/18 11:37 Review of Systems - Constitutional as per HPI, fatigue, no chills - EENT Nose, mouth and throat: no dizziness, no throat swelling - Cardiovascular chest pain, dyspnea, no diaphoresis, no leg edema, no palpitations - Respiratory cough, dyspnea - Gastrointestinal no abdominal pain, no change in bowel habits, no fecal incontinence, no nausea, no vomiting - Genitourinary change in urinary stream, difficulty urinating, post void dribbling, urinary frequency, urinary incontinence, urinary urgency, no dysuria, no flank pain, no hematuria, no urinary hesitancy - Musculoskeletal no back pain, no muscle weakness - Integumentary no lesions, no rash - Neurological no confusion, no syncope - Psychiatric no confusion Exam Initial Vital Signs Temp Pulse Resp BP Pulse Ox 98.1 F 65 18 106/67 95 05/15/18 11:34 05/15/18 11:34 05/15/18 11:34 05/15/18 11:34 05/15/18 11:34 - General physical appearance Present: well developed, no distress, no pain - Eyes Present: PERRL, normal ocular movement - ENT Present: normal nares. Absent: nasal discharge - Neck Present: no masses, trachea midline - Respiratory Present: normal respiratory effort - Abdomen Abdomen: Present: soft, non tender. Absent: distended, suprapubic tenderness - Genitourinary other (Do catheter indwelling draining urine efficiently; orange-red urine in tubing; fruit punch urine in do bag; no visible clots ) - Integumentary Present: no rash, no abnormal pigmentation - Neurologic Present: normal coordination. Absent: disoriented, confused Urology Results - Labs 05/16/18 08:51 05/16/18 08:51 Abnormal lab results RDW 15.6 % (11.5-14.5) H 05/16/18 08:51 PT 12.6 Seconds (9.4-12.1) H 05/16/18 08:51 Heparin Anti-Xa, Unfract 0.05 IU/mL (0.30-0.70) L 05/15/18 12:07 Carbon Dioxide 31 mEq/L (23-29) H 05/16/18 08:51 BUN 33 mg/dL (8-23) H 05/16/18 08:51 Creatinine 1.39 mg/dL (0.70-1.30) H 05/16/18 08:51 Est GFR ( Amer) 59 (> 60) L 05/16/18 08:51 Est GFR (Non-Af Amer) 49 (> 60) L 05/16/18 08:51 Glucose 132 mg/dL (70-105) H 05/16/18 08:51 POC Glucose 135 mg/dL (70-99) H 05/17/18 00:56 Lactic Acid 2.6 mmol/L (0.5-2.2) H 05/15/18 15:56 ALT 4 Units/L (7-52) L 05/16/18 08:51 Alkaline Phosphatase 158 Units/L (34-104) H 05/16/18 08:51 Troponin I 0.05 ng/mL (< 0.04) H* 05/16/18 08:51 B-Natriuretic Peptide 511 pg/mL (Less than 100) H 05/16/18 08:51 Urine Color Red (Yellow) A 05/16/18 16:28 Urine Clarity Cloudy (Clear) A 05/16/18 16:28 Urine Protein 30 mg/dL (Neg-Trace) H 05/16/18 16:28 Urine Ketones Trace mg/dL (Negative) H 05/16/18 16:28 Urine Blood Large (Negative) H 05/16/18 16:28 Ur Leukocyte Esterase Small (Negative) H 05/16/18 16:28 Urine Microscopic RBC TNTC per hpf (0-3) H 05/16/18 16:28 Urine Microscopic WBC 5-15 per hpf (0-3) H 05/16/18 16:28 Ur Culture Indicated? YES (NO) A 05/16/18 16:28 All other labs normal. Consult Discharge Plan - Plan Additional Instructions: Please call to make follow up outpatient appointment with [facility] within 2 weeks of discharge. Referrals: Rick Frederick MD [Partnered Physician] - Boston Pearson MD [Primary Care Provider] - 05/24/18 10:15 am <Rick Frederick - Last Filed: 05/17/18 18:13> Date of Encounter: 05/17/18 - Assessment and Plan (1) Hematuria Current Visit: Yes Status: Acute Assessment and plan: Patient seen and examined. Hematuria appears to be resolving and is only lightly pink and transparent at this time. I recommend continuing the catheter until the urine is completely clear. Hold anti-anticoagulation if possible. I recommend starting tamsulosin 0.4 mg at discharge. Patient will require non-urgent follow-up in the urology office. Catheter can be removed at rehabilitation center if the urine clears. Patient should be monitored for increasing urinary symptoms after the catheter is removed. His urinary symptoms have only occurred over the last month although he admits to being evaluated for BPH 8 years ago Qualifiers: Hematuria type: gross Qualified Code(s): R31.0 - Gross hematuria Exam Initial Vital Signs Temp Pulse Resp BP Pulse Ox 98.1 F 65 18 106/67 95 05/15/18 11:34 05/15/18 11:34 05/15/18 11:34 05/15/18 11:34 05/15/18 11:34 Urology Results - Labs 05/17/18 10:37 05/17/18 10:37 Abnormal lab results RDW 15.4 % (11.5-14.5) H 05/17/18 10:37 PT 12.6 Seconds (9.4-12.1) H 05/16/18 08:51 Heparin Anti-Xa, Unfract 0.05 IU/mL (0.30-0.70) L 05/15/18 12:07 Carbon Dioxide 36 mEq/L (23-29) H 05/17/18 10:37 BUN 32 mg/dL (8-23) H 05/17/18 10:37 Creatinine 1.47 mg/dL (0.70-1.30) H 05/17/18 10:37 Est GFR ( Amer) 55 (> 60) L 05/17/18 10:37 Est GFR (Non-Af Amer) 46 (> 60) L 05/17/18 10:37 Glucose 228 mg/dL (70-105) H 05/17/18 10:37 POC Glucose 135 mg/dL (70-99) H 05/17/18 00:56 Lactic Acid 2.6 mmol/L (0.5-2.2) H 05/15/18 15:56 ALT 4 Units/L (7-52) L 05/16/18 08:51 Alkaline Phosphatase 158 Units/L (34-104) H 05/16/18 08:51 Troponin I 0.05 ng/mL (< 0.04) H* 05/16/18 08:51 B-Natriuretic Peptide 511 pg/mL (Less than 100) H 05/16/18 08:51 Urine Color Red (Yellow) A 05/16/18 16:28 Urine Clarity Cloudy (Clear) A 05/16/18 16:28 Urine Protein 30 mg/dL (Neg-Trace) H 05/16/18 16:28 Urine Ketones Trace mg/dL (Negative) H 05/16/18 16:28 Urine Blood Large (Negative) H 05/16/18 16:28 Ur Leukocyte Esterase Small (Negative) H 05/16/18 16:28 Urine Microscopic RBC TNTC per hpf (0-3) H 05/16/18 16:28 Urine Microscopic WBC 5-15 per hpf (0-3) H 05/16/18 16:28 Ur Culture Indicated? YES (NO) A 05/16/18 16:28 Diabetes panel 05/17/18 Range/Units 10:37 Sodium 138 (136-145) mEq/L Potassium 4.7 (3.5-5.1) mEq/L Chloride 98 (98-107) mEq/L Carbon Dioxide 36 H (23-29) mEq/L BUN 32 H (8-23) mg/dL Creatinine 1.47 H (0.70-1.30) mg/dL Glucose 228 H (70-105) mg/dL Calcium 9.2 (8.6-10.3) mg/dL Calcium panel 05/17/18 Range/Units 10:37 Calcium 9.2 (8.6-10.3) mg/dL Pituitary panel 05/17/18 Range/Units 10:37 Sodium 138 (136-145) mEq/L Potassium 4.7 (3.5-5.1) mEq/L Chloride 98 (98-107) mEq/L Carbon Dioxide 36 H (23-29) mEq/L BUN 32 H (8-23) mg/dL Creatinine 1.47 H (0.70-1.30) mg/dL Glucose 228 H (70-105) mg/dL Calcium 9.2 (8.6-10.3) mg/dL Adrenal panel 05/17/18 Range/Units 10:37 Sodium 138 (136-145) mEq/L Potassium 4.7 (3.5-5.1) mEq/L Chloride 98 (98-107) mEq/L Carbon Dioxide 36 H (23-29) mEq/L BUN 32 H (8-23) mg/dL Creatinine 1.47 H (0.70-1.30) mg/dL Glucose 228 H (70-105) mg/dL Calcium 9.2 (8.6-10.3) mg/dL All other labs normal.
[2018-05-17] MEDS: Insulin NPH/REG 70/30 100 UNIT/ML (x5UNIT) SQ SCH ×2 (10:19→21:55)
[2018-05-17 10:48] LABS: Basophils % 0.3 %; Eosinophils # 0.1 K/mcL (0.0-0.6); Eosinophils % 1.5 %; Hematocrit 42.3 % (37.5-50.1); Hemoglobin 13.6 g/dL (12.9-16.9); Immature Granulocytes % 0.2 % (0-4); Lymphocytes # 0.7 K/mcL (0.6-4.6); Lymphocytes % 11.5 %; Mean Corpuscular HGB Conc 32.2 g/dL (31.6-35.5); Mean Corpuscular Hemoglobin 30.6 pg (28.0-33.3); Mean Corpuscular Volume 95.1 fL (83.0-100.0); Mean Platelet Volume 9.4 fL (9.4-12.4); Monocytes # 0.6 K/mcL (0.0-1.3); Monocytes % 10.1 %; Neutrophils # 4.4 K/mcL (1.6-8.9); Platelet Count 162 K/mcL (140-400); Red Blood Count 4.45 M/mcL (4.19-5.50); Red Cell Distribution Width 15.4 % (11.5-14.5); Segmented Neutrophils % 76.4 %
[2018-05-17 11:11] LABS: Calcium 9.2 mg/dL (8.6-10.3); Potassium 4.7 mEq/L (3.5-5.1)
--- NOTE | 2018-05-17 11:28 | Cardiology Progress Note ---
Date of Encounter: 05/17/18 Time of Encounter: 11:00 Assessment and Plan (1) Congestive heart failure Current Visit: Yes Status: Chronic Acute on chronic diastolic CHF; suspect may be secondary to dietary indiscretion at home. Reports increasing weights/LE/dyspnea over the past several weeks. BNP 666, similar to previous admission. CXR shows stable exam, with bibasilar opacities, right worse than left compatible with bilateral pleural effusions and associated bibasilar atelectasis or infiltrates Recent TTE shows preserved LVEF with normal functioning bioprosthetic AV valve, repeat this admission shows LVEF 50% with normal functioning AV by doppler. Continue IV diuresis; recommend additional 24 hours of IV diuresis, change to po upon discharge. Monitor kidney function closely given hx of CKD. Strict I&O's, daily weights, Na/fluid restriction diet. Cumulative I&O: -2760 mL Emphasis placed on CHF teaching with patient and family. Qualifiers: Heart failure type: diastolic Heart failure chronicity: acute on chronic Qualified Code(s): I50.33 - Acute on chronic diastolic (congestive) heart failure (2) Atrial flutter Current Visit: Yes Status: Acute Hx of atrial flutter, rate controlled on currently medical therapy. 12 hour tele: avg HR=67. No significant pause. Has not been on AC due to frequent falls and anemia. Of note significant hematuria noted today s/p do insertion. Consider Urology consult. Continue asa only; patient/family aware of increased risk for CVA. Qualifiers: Atrial flutter type: unspecified Qualified Code(s): I48.92 - Unspecified atrial flutter (3) Elevated troponin Current Visit: No Status: Resolved Troponin 0.06, 0.05 in the setting of CHF exacerbation and CKD. Doubt ACS. [facility] 2011--mild, non-obstructive CAD. No further testing recommended as inpatient. EF 50%--unchanged from prior. Can consider ischemic evaluation (stress) as outpatient. (4) Aortic valve replaced Current Visit: No Status: Chronic Hx of bioprosthestic valve replacement in 1998 at [facility]. Most recent TTE (March 2018) demonstrated preserved LVEF with normal functioning AV valve. Repeat TTE this admission shows unchanged findings. Discussion w patient/family: The assessment and plan as outlined above was discussed with the patient and/or family members who expressed understanding and agreement. All questions were answered. Thank you for involving us in the care of your patient. Please call with any questions. The patient will be discussed and reviewed with Dr. Portillo; changes to be made accordingly. Will arrange for outpatient follow-up. Subjective Principal diagnosis: dCHF Interval history: Seen and examined. Hematuria appears to be improving, Urology following. Reports LE edema and shortness of breath continues to improve. Objective Vital Signs, Last 4 Hours Temp Pulse Resp BP Pulse Ox 05/17/18 10:52 97.7 F 66 16 100/62 92 General: Conversant, No Apparent Distress HEENT: Atraumatic, Normocephaly, Mucus Membranes Moist Cardiac: Reg Rate and Rhythm, Normal S1 and S2 Lungs: Other (Bibasilar rales) Neuro: Alert and responsive Abdomen: Soft Skin: No rashes noted on visualized skin Musculoskeletal: No Chest Wall Tenderness Extremities: Other (+1 BLE edema) Results 05/17/18 10:37 05/17/18 10:37 Lab Results 05/17/18 05/17/18 10:37 10:37 WBC 5.8 Hgb 13.6 Hct 42.3 Plt Count 162 Sodium 138 Potassium 4.7 Chloride 98 Carbon Dioxide 36 H BUN 32 H Creatinine 1.47 H Glucose 228 H Calcium 9.2 Active Medications Atorvastatin Calcium (Lipitor) 20 mg PO HS [place] Stop: 11/15/18 21:01 Last Admin: 05/16/18 21:27 Dose: 20 mg Carbidopa/Levodopa (Sinemet) 1 each PO 5XD [place] Stop: 11/14/18 20:01 Last Admin: 05/17/18 08:51 Dose: 1 each Cyanocobalamin (Vitamin B12) 1,000 mcg PO DAILY [place] Stop: 11/15/18 09:01 Last Admin: 05/17/18 08:51 Dose: 1,000 mcg Dextrose/Water (Dextrose 50% (Syg)) 25 ml IVP AD PRN PRN Reason: Hypoglycemia Stop: 11/14/18 17:31 Last Admin: 05/17/18 00:53 Dose: 25 ml Ergocalciferol (Drisdol (50,000 Unit)) 50,000 unit PO QWEEK [place] Stop: 11/14/18 17:31 Last Admin: 05/15/18 20:49 Dose: Not Given Furosemide (Lasix) 40 mg IVP BIDDIURETIC [facility] Stop: 11/15/18 09:01 Last Admin: 05/17/18 08:50 Dose: 40 mg Glucagon (Glucagen) 1 mg IM ONCE PRN PRN Reason: Hypoglycemia Stop: 11/14/18 17:31 Glucose (Gluctose) 15 gm PO ONCE PRN PRN Reason: Hypoglycemia Stop: 11/14/18 17:31 Glucose (Gluctose) 30 gm PO ONCE PRN PRN Reason: Hypoglycemia Stop: 11/14/18 17:31 Dextrose (Dextrose 5%) 1,000 mls @ 100 mls/hr IVC .Q10H PRN PRN Reason: HYPOGLYCEMIA Stop: 11/14/18 17:31 Insulin Human Lispro (Humalog) 0 units SQ HS [facility] PRN Reason: Protocol Stop: 11/14/18 21:01 Last Admin: 05/16/18 21:25 Dose: Not Given Insulin Human Lispro (Humalog) 0 units SQ TIDAC [facility] PRN Reason: Protocol Stop: 11/15/18 07:31 Last Admin: 05/17/18 08:40 Dose: Not Given Insulin Isophane/Insulin Regular (Humulin 70/30 Vial) 12 unit SQ BID [facility] Stop: 11/14/18 21:01 Last Admin: 05/17/18 10:19 Dose: 12 unit Lactobacillus Acidophilus/Rhamnosus (Culturelle) 1 each PO DAILY [place] Stop: 11/15/18 09:01 Last Admin: 05/17/18 08:51 Dose: 1 each Levothyroxine Sodium (Synthroid) 88 mcg PO 0630 [facility] Stop: 11/15/18 06:31 Last Admin: 05/17/18 06:15 Dose: 88 mcg Metoprolol Tartrate (Lopressor) 100 mg PO BID [facility] Stop: 11/14/18 21:01 Last Admin: 05/17/18 08:51 Dose: 100 mg Naloxone HCl (Narcan) 0.4 mg IVP Q2MIN PRN PRN Reason: SEE COMMENTS Stop: 11/15/18 07:55 Polysaccharide Iron Complex (Ferrex 150) 150 mg PO 1000 [facility] Stop: 11/15/18 10:01 Last Admin: 05/17/18 08:51 Dose: 150 mg Primidone (Mysoline) 250 mg PO BID [facility] Stop: 11/14/18 21:01 Last Admin: 05/17/18 08:51 Dose: 250 mg Vitamin E (Vitamin E) 200 unit PO BID [place] Stop: 11/14/18 21:01 Last Admin: 05/17/18 08:51 Dose: 200 unit - Imaging and Cardiology Echo: report reviewed Other Results: pt. not on telemetry - EKG Interpretation EKG results cardiology: personally reviewed Consult Discharge Plan - Plan Additional Instructions: Please call to make follow up outpatient appointment with [facility] within 2 weeks of discharge. Referrals: Rick Frederick MD [Partnered Physician] - Boston Pearson MD [Primary Care Provider] - 05/24/18 10:15 am
--- NOTE | 2018-05-17 16:57 | Internal Med Progress Note ---
Date of Encounter: 05/17/18 Time of Encounter: 11:30 - Assessment and plan (1) Acute exacerbation of CHF (congestive heart failure) Current Visit: Yes Status: Acute Assessment and plan: Improving. Echocardiogram shows 50% EF, mild concentric LVH, indeterminate diastolic function, well-seated bioprosthetic aortic valve. Continue diuresis with IV Lasix, telemetry monitoring, fluid restriction, urine output monitoring. Continue beta eve. Noted to have net negative fluid balance of 3000 mL. Cardiology on board, recommendations appreciated. Qualifiers: Heart failure type: diastolic Qualified Code(s): I50.33 - Acute on chronic diastolic (congestive) heart failure (2) Essential hypertension Current Visit: Yes Status: Chronic Assessment and plan: Blood pressure well controlled. Continue current medications. (3) Diabetes mellitus Current Visit: Yes Status: Chronic Assessment and plan: Blood sugars mildly elevated. Continue basal bolus insulin regimen and Accu- Chek blood glucose monitoring, diabetic diet. Qualifiers: Diabetes mellitus type: type 2 Diabetes mellitus fdc insulin use: with fdc use Diabetes mellitus complication status: with kidney complications Diabetes mellitus complication detail: with chronic kidney disease Chronic kidney disease stage: stage 3 (moderate) Qualified Code(s): E11.22 - Type 2 diabetes mellitus with diabetic chronic kidney disease; N18.3 - Chronic kidney disease, stage 3 (moderate); Z79.4 - shelter (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 of insulin (4) CKD (chronic kidney disease), stage III Current Visit: Yes Status: Chronic Assessment and plan: Serum creatinine noted to be 1.47, within his baseline fluctuation; Monitor closely as he is on IV diuresis; (5) Hypothyroidism Current Visit: Yes Status: Chronic Qualifiers: Hypothyroidism type: unspecified Qualified Code(s): E03.9 - Hypothyroidism , unspecified (6) Elevated troponin Current Visit: Yes Status: Acute Assessment and plan: Serial troponins flat and adynamic, around 0.05; due to CHF; (7) Parkinson disease Current Visit: Yes Status: Chronic (8) Hematuria Current Visit: Yes Status: Acute Assessment and plan: likely due to traumatic Becerra; Urology on board; improving now; avoid anticoagulants; Qualifiers: Hematuria type: gross Qualified Code(s): R31.0 - Gross hematuria (9) Aortic valve replaced Current Visit: Yes Status: Chronic (10) Atrial flutter Current Visit: Yes Status: Chronic Assessment and plan: rate-controlled; not on anticoagulation due to frequent falls and anemia; cardiology on board; on ASA only; Qualifiers: Atrial flutter type: unspecified Qualified Code(s): I48.92 - Unspecified atrial flutter - Time Spent With Patient Total time spent is greater than 50% in coordination of care (as documented) at patient's floor/unit and/or counseling patient: - Subjective Interval history: Reports improvement in shortness of breath and leg swelling. No chest pain, palpitations. Improving hematuria. - Constitutional Vitals: Temp Pulse Resp BP Pulse Ox 98.6 F 95 19 120/74 99 05/17/18 15:35 05/17/18 15:35 05/17/18 15:35 05/17/18 15:35 05/17/18 15:35 General appearance: Present: A&O X 3, answers questions appropriately - Respiratory Respiratory exam: Present: CTAB. Absent: accessory muscle use, rales, rhonchi, wheezes - Cardiovascular Cardiovascular exam: Present: RRR, +S1, +S2 (artificial heart valve). Absent: diastolic murmur, gallop, rubs, systolic murmur - GI/Abdominal GI/Abdominal exam: Present: normal bowel sounds, soft, no peritoneal signs. Absent: distended, tenderness - Extremities Exam Extremities exam: Present: pedal edema (trace), warm, radial pulses palpable and symmetrical. Absent: calf tenderness, cyanotic Internal Medicine: Result - Labs CBC & Chem 7: 05/17/18 10:37 05/17/18 10:37 Labs: Short CBC 05/17/18 Range/Units 10:37 WBC 5.8 (4.3-11.1) K/mcL Hgb 13.6 (12.9-16.9) g/dL Hct 42.3 (37.5-50.1) % Plt Count 162 (140-400) K/mcL Neutrophils # 4.4 (1.6-8.9) K/mcL BMP 05/17/18 10:37 Sodium 138 Potassium 4.7 Chloride 98 Carbon Dioxide 36 H BUN 32 H Creatinine 1.47 H Glucose 228 H Calcium 9.2 - ABG Interpretation ABG results: PT/INR, D-dimer PT 12.6 Seconds (9.4-12.1) H 05/16/18 08:51 Consult Discharge Plan - Plan Additional Instructions: Please call to make follow up outpatient appointment with [facility] within 2 weeks of discharge. Referrals: Rick Frederick MD [Partnered Physician] - Boston Pearson MD [Primary Care Provider] - 05/24/18 10:15 am
[2018-05-18] MEDS: Carbidopa/Levodopa 25/100 TABLET PO SCH ×6 (00:02→23:24)
[2018-05-18 07:19] LABS: Calcium 9.1 mg/dL (8.6-10.3); Magnesium 2.2 mg/dL (1.6-2.6); Potassium 4.4 mEq/L (3.5-5.1)
[2018-05-18] MEDS: Insulin LISPRO 300 UNITS/3 ML VIAL SQ SCH ×4 (08:16→21:26)
[2018-05-18] MEDS: Cyanocobalamin (B-12) 1,000 MCG TABLET PO SCH (08:20)
[2018-05-18] MEDS: Metoprolol 100 MG TABLET PO SCH ×2 (08:20→20:18)
[2018-05-18] MEDS: Furosemide 40 MG/4 ML VIAL IVP SCH (08:20)
[2018-05-18] MEDS: Iron Polysaccharide Complex 150 MG CAPSULE PO SCH (08:20)
[2018-05-18] MEDS: Lactobacillus 1 EACH CAP.SPRINK PO SCH (08:20)
[2018-05-18] MEDS: Insulin NPH/REG 70/30 100 UNIT/ML (x5UNIT) SQ SCH ×2 (08:24→21:27)
--- NOTE | 2018-05-18 16:37 | Internal Med Progress Note ---
Date of Encounter: 05/18/18 Time of Encounter: 12:30 - Assessment and plan (1) Acute exacerbation of CHF (congestive heart failure) Current Visit: Yes Status: Acute Assessment and plan: Improving. Echocardiogram shows 50% EF, mild concentric LVH, indeterminate diastolic function, well-seated bioprosthetic aortic valve. Continue diuresis, will change to PO Lasix, telemetry monitoring, fluid restriction, urine output monitoring. Continue beta eve. Noted to have net negative fluid balance of 3500 mL. 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 Continue current medications. (3) Diabetes mellitus Current Visit: Yes Status: Chronic Assessment and plan: Blood sugars continue to be elevated. Increase basal bolus insulin regimen and Accu-Chek blood glucose monitoring, diabetic diet. 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: with alf use Diabetes mellitus complication status: with kidney complications Diabetes mellitus complication detail: with chronic kidney disease Chronic kidney disease stage: stage 3 (moderate) Qualified Code(s): E11.22 - Type 2 diabetes mellitus with diabetic chronic kidney disease; N18.3 - Chronic kidney disease, stage 3 (moderate); Z79.4 - long term (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 of insulin (4) CKD (chronic kidney disease), stage III Current Visit: Yes Status: Chronic Assessment and plan: Serum creatinine noted to be 1.38, within his baseline fluctuation; Monitor closely; (5) Hypothyroidism Current Visit: Yes Status: Chronic Qualifiers: Hypothyroidism type: unspecified Qualified Code(s): E03.9 - Hypothyroidism , unspecified (6) Elevated troponin Current Visit: Yes Status: Acute (7) Parkinson disease Current Visit: Yes Status: Chronic (8) Hematuria Current Visit: Yes Status: Acute Assessment and plan: likely due to traumatic Becerra; Urology has been consulted, plan to start Flomax , continue Becerra, which can be removed at rehab if urine clears up; improving now, but still has dark brownish urine; avoid anticoagulants; Qualifiers: Hematuria type: gross Qualified Code(s): R31.0 - Gross hematuria (9) Aortic valve replaced Current Visit: Yes Status: Chronic (10) Atrial flutter Current Visit: Yes Status: Chronic Assessment and plan: rate-controlled; not on anticoagulation due to frequent falls and anemia; cardiology on board; on ASA only; Qualifiers: Atrial flutter type: unspecified Qualified Code(s): I48.92 - Unspecified atrial flutter - Time Spent With Patient Total time spent is greater than 50% in coordination of care (as documented) at patient's floor/unit and/or counseling patient: - Subjective Interval history: Reports improvement in shortness of breath and leg swelling. No chest pain, palpitations. Improving hematuria, but continues to have dark urine. - Constitutional Vitals: Temp Pulse Resp BP Pulse Ox 97.6 F 92 15 113/69 95 05/18/18 15:30 05/18/18 15:30 05/18/18 15:30 05/18/18 15:30 05/18/18 15:30 General appearance: Present: A&O X 3, answers questions appropriately - Respiratory Respiratory exam: Present: CTAB. Absent: accessory muscle use, rales, rhonchi, wheezes - Cardiovascular Cardiovascular exam: Present: RRR, +S1, +S2. Absent: diastolic murmur, gallop, rubs, systolic murmur - GI/Abdominal GI/Abdominal exam: Present: normal bowel sounds, soft, no peritoneal signs. Absent: distended, tenderness Internal Medicine: Result - Labs CBC & Chem 7: 05/17/18 10:37 05/18/18 06:42 Labs: BMP 05/18/18 06:42 Sodium 140 Potassium 4.4 Chloride 101 Carbon Dioxide 32 H BUN 35 H Creatinine 1.38 H Glucose 146 H Calcium 9.1 - ABG Interpretation ABG results: PT/INR, D-dimer PT 12.6 Seconds (9.4-12.1) H 05/16/18 08:51 Consult Discharge Plan - Plan Additional Instructions: Please call to make follow up outpatient appointment with [facility] within 2 weeks of discharge. Referrals: Rick Frederick MD [Partnered Physician] - Boston Pearson MD [Primary Care Provider] - 05/24/18 10:15 am
[2018-05-18] MEDS: Furosemide 40 MG TABLET PO SCH (17:33)
[2018-05-19] MEDS: Lactobacillus 1 EACH CAP.SPRINK PO SCH (08:28)
[2018-05-19] MEDS: Iron Polysaccharide Complex 150 MG CAPSULE PO SCH (08:28)
[2018-05-19] MEDS: Metoprolol 100 MG TABLET PO SCH (08:28)
[2018-05-19] MEDS: Cyanocobalamin (B-12) 1,000 MCG TABLET PO SCH (08:29)
[2018-05-19] MEDS: Furosemide 40 MG TABLET PO SCH (08:29)
[2018-05-19] MEDS: Insulin NPH/REG 70/30 100 UNIT/ML (x5UNIT) SQ SCH (08:36)
[2018-05-19] MEDS: Insulin LISPRO 300 UNITS/3 ML VIAL SQ SCH ×2 (08:37→13:10)
[2018-05-19] MEDS: Carbidopa/Levodopa 25/100 TABLET PO SCH ×2 (08:40→13:10)
[2018-05-19] MEDS: Heparin 25,000 UNIT/500 ML D5W 25,000 UNIT/500 ML BAG IVC SCH (10:53)
[2018-05-19 11:19] VITALS: BP 111/70
--- NOTE | 2018-05-19 12:29 | Discharge Summary ---
- NOTES TO OUTPATIENT PROVIDER Notes to Outpatient Provider: Acute CHF; uncontrolled blood sugars, to monitor closely; developed hematuria due to traumatic Becerra, to remove Becerra at rehab after urine clears up; Urology f/up- non-urgent; Date of Encounter: 05/19/18 Time of Encounter: 12:27 - Discharge Diagnosis (1) Acute exacerbation of CHF (congestive heart failure) Priority: Primary Status: Acute Qualifiers: Heart failure type: diastolic Qualified Code(s): I50.33 - Acute on chronic diastolic (congestive) heart failure (2) Essential hypertension Priority: Secondary Status: Chronic (3) Diabetes mellitus Priority: Secondary Status: Chronic Qualifiers: Diabetes mellitus type: type 2 Diabetes mellitus 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 manager insulin use: with 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 manager use Diabetes mellitus complication status: with kidney complications Diabetes mellitus complication detail: with chronic kidney disease Chronic kidney disease stage: stage 3 (moderate) Qualified Code(s): E11.22 - Type 2 diabetes mellitus with diabetic chronic kidney disease; N18.3 - Chronic kidney disease, stage 3 (moderate); Z79.4 - custodial (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 of insulin (4) CKD (chronic kidney disease), stage III Priority: Secondary Status: Chronic (5) Hypothyroidism Priority: Secondary Status: Chronic Qualifiers: Hypothyroidism type: unspecified Qualified Code(s): E03.9 - Hypothyroidism , unspecified (6) Elevated troponin Priority: Primary Status: Acute (7) Parkinson disease Priority: Secondary Status: Chronic (8) Hematuria Priority: Primary Status: Acute Qualifiers: Hematuria type: gross Qualified Code(s): R31.0 - Gross hematuria (9) Aortic valve replaced Priority: Secondary Status: Chronic (10) Atrial flutter Priority: Secondary Status: Chronic Qualifiers: Atrial flutter type: unspecified Qualified Code(s): I48.92 - Unspecified atrial flutter Hospital course: Mr. Lux is a 87 year old male with the above medical problems who was admitted with shortness of breath and leg swelling. He was noted to be in acute exacerbation of CHF, was treated with diuresis with IV Lasix, fluid restriction and urine output monitoring. Cardiology was consulted, agreed with the plan of care. Echocardiogram showed 50% EF, mild concentric LVH, indeterminate diastolic function, well-seated bioprosthetic aortic valve. Patient is noted to have uncontrolled diabetes, insulin is being increased. He was noted to have new onset of hematuria likely due to traumatic Becerra insertion. Urology was consulted, recommend to his continue Becerra at the custodial when urine color completely clears up. He is also being started on Flomax and will follow up with urology as an outpatient. Physical and occupational therapy evaluation was completed, recommend ECF placement. Patient and family are in agreement. He is currently medically stable for discharge. Discharge discussed with: patient, family, nurse - Time Spent with Patient Total time spent providing and/or coordinating discharge services: Greater than 30 minutes (45 manuelito) - Discharge Medications Home Medications: Alendronate Sodium [Fosamax] 70 mg PO QWEEK 03/08/18 [History] Atorvastatin Calcium [Lipitor] 20 mg PO DAILY 03/08/18 [History] Carbidopa/Levodopa 25/100 [Sinemet 25/100] 1 tab PO 5XD 03/08/18 [History] Cyanocobalamin (Vitamin B-12) [Vitamin B12] 1,000 mcg PO DAILY 03/08/18 [History ] Ergocalciferol (VITAMIN D2) [Vitamin D2] 50,000 unit PO QWEEK 03/08/18 [History] Furosemide [Lasix] 40 mg PO 1500 03/08/18 [History] Furosemide [Lasix] 80 mg PO QAM 03/08/18 [History] Iron Polysaccharide Complex [Ferrex 150] 150 mg PO DAILY 03/08/18 [History] Lactobacillus Acidophilus [Acidophilus] 1 cap PO DAILY 03/08/18 [History] Levothyroxine Sodium [Levoxyl] 88 mcg PO QAM 03/08/18 [History] Metformin HCl [Glucophage] 1,000 mg PO QAM 03/08/18 [History] Metformin HCl [Glucophage] 1,500 mg PO QPM 03/08/18 [History] Metoprolol [Lopressor] 100 mg PO BID 03/08/18 [History] Primidone [Mysoline] 250 mg PO BID 03/08/18 [History] Vitamin E (Dl,Tocopheryl Acet) [Vitamin E] 1,000 unit PO BID 03/08/18 [History] hydroCHLOROthiazide [Hydrochlorothiazide] 25 mg PO DAILY 03/08/18 [History] Novolog Mix 70-30 Vial 12 units SQ BID 05/19/18 [History] Tamsulosin [Flomax] 0.4 mg PO DAILY capsule 05/19/18 [Rx] Allergies/Adverse Reactions: 3 Allergy/AdvReac Type Severity Reaction Status Date / Time No Known Allergies Allergy Verified 05/15/18 11:37 Date of admission: 05/16/18 17:47 Primary care physician: Boston Pearson MD Consults: 05/16/18 18:56 Consult to Urology [CONS] Routine Consulting Provider: [facility] Reason for Consult: hematuria Call Completed: No 05/17/18 08:52 Consult to Nurse Navigator [CONS] Routine Comment: CHF Discharging clinician: Fina Salas Anticipated date of discharge: 05/19/18 - Constitutional Vitals: Temp Pulse Resp BP Pulse Ox 98.1 F 67 14 111/70 97 05/19/18 11:19 05/19/18 11:19 05/19/18 11:19 05/19/18 11:19 05/19/18 11:19 General appearance: Present: A&O X 3, answers questions appropriately - Respiratory Respiratory exam: Present: CTAB. Absent: accessory muscle use, rales, rhonchi, wheezes - Cardiovascular Cardiovascular exam: Present: RRR, +S1, +S2 (mechanical valve). Absent: diastolic murmur, gallop, rubs, systolic murmur - Patient Status Disposition: Transfer SNF Condition: Fair Functional capacity at discharge: uses cane/walker Overall status at discharge: patient is progressing back to baseline - Discharge Instructions Follow Up With: Rick Frederick MD [Partnered Physician] - Boston Pearson MD [Primary Care Provider] - 05/24/18 10:15 am Additional Instructions: Please call to make follow up outpatient appointment with [facility] within 2 weeks of discharge. - Diet and Activity Activity: as per physical therapy, wear oxygen at all times Diet: diabetic diet, low fat, low cholesterol, low salt diet, other (fluid restriction to 1.5L/day)
[2018-05-19] MEDS ORDERED: Acetaminophen 325 MG TABLET PO ONE (12:42)
--- NOTE | 2018-05-19 12:45 | Physician Discharge Referral ---
ExtendedCare Referral Info Transfer To: [facility] Provider in Charge: Fina Salas Provider in Charge after Transfer: PCP Institutional Level of Care: Intermediate - Diagnosis (1) Acute exacerbation of CHF (congestive heart failure) Priority: Primary Status: Acute (2) Essential hypertension Priority: Secondary Status: Chronic (3) Diabetes mellitus Priority: Secondary Status: Chronic (4) CKD (chronic kidney disease), stage III Priority: Secondary Status: Chronic (5) Hypothyroidism Priority: Secondary Status: Chronic (6) Elevated troponin Priority: Primary Status: Acute (7) Parkinson disease Priority: Secondary Status: Chronic (8) Hematuria Priority: Primary Status: Acute (9) Aortic valve replaced Priority: Secondary Status: Chronic (10) Atrial flutter Priority: Secondary Status: Chronic Expected Duration of Placement: 3 weeks Prognosis: Fair Aware of Diagnosis: Patient, Family Aware of Prognosis: Patient, Family - Transfer Medications Home Medications: Alendronate Sodium [Fosamax] 70 mg PO QWEEK 03/08/18 [History] Atorvastatin Calcium [Lipitor] 20 mg PO DAILY 03/08/18 [History] Carbidopa/Levodopa 25/100 [Sinemet 25/100] 1 tab PO 5XD 03/08/18 [History] Cyanocobalamin (Vitamin B-12) [Vitamin B12] 1,000 mcg PO DAILY 03/08/18 [History ] Ergocalciferol (VITAMIN D2) [Vitamin D2] 50,000 unit PO QWEEK 03/08/18 [History] Furosemide [Lasix] 40 mg PO 1500 03/08/18 [History] Furosemide [Lasix] 80 mg PO QAM 03/08/18 [History] Iron Polysaccharide Complex [Ferrex 150] 150 mg PO DAILY 03/08/18 [History] Lactobacillus Acidophilus [Acidophilus] 1 cap PO DAILY 03/08/18 [History] Levothyroxine Sodium [Levoxyl] 88 mcg PO QAM 03/08/18 [History] Metformin HCl [Glucophage] 1,000 mg PO QAM 03/08/18 [History] Metformin HCl [Glucophage] 1,500 mg PO QPM 03/08/18 [History] Metoprolol [Lopressor] 100 mg PO BID 03/08/18 [History] Primidone [Mysoline] 250 mg PO BID 03/08/18 [History] Vitamin E (Dl,Tocopheryl Acet) [Vitamin E] 1,000 unit PO BID 03/08/18 [History] hydroCHLOROthiazide [Hydrochlorothiazide] 25 mg PO DAILY 03/08/18 [History] Alendronate Sodium [Fosamax] 70 mg PO QWEEK 05/15/18 [History] Insulin Aspart Prot/Insuln Asp [Novolog Mix 70-30 Vial] 20 unit SQ BID #0 [Rx] Tamsulosin [Flomax] 0.4 mg PO DAILY capsule 05/19/18 [Rx] Allergies/Adverse Reactions: 3 Allergy/AdvReac Type Severity Reaction Status Date / Time No Known Allergies Allergy Verified 05/15/18 11:37 - Respiratory Orders Oxygen / L per min (1-2L/min via NC PRN for O2 sat>90%) Smoking Cessation: Smoking cessation has been advised. For more information, call the [employer] Tobacco Quit Line at 7-769-KMQC-NOW. - Advance Directives Power of Metallurgical Engineering Technician: Yes Code Status: Full Code - Mobility Orders Ambulate - Rehabiliation Orders Rehab Potential: Fair Rehab Orders: Sternal Precautions, ROM Exercises, Evaluation for Physical Therapy, Evaluation for Occupational Therapy - Diet Orders No Added Salt (EDD), No Concentrated Sweets (diabetic), Cardiac (fluid restriction to 1.5L/day) CERTIFICATION: I certify that the transfer of the above named patient to an Extended Care Facility is necessary for the continuing treatment of the diagnosis listed. The above information is true and accurate reflection of patient's current condition. Confidential - Redisclosure prohibited without a patient's written consent.
== END 2018-05-19 15:17 | DRG 291 ==
LOC: EMEROO 11:32 → 2SOUTHHOLD 11:32 → SUATTDRO 05-16 17:47 → 3BNU 05-17 06:05
PROVIDERS: ADMIT Internal Medicine Nephrology; ATTEND Internal Medicine